=== PATIENT | female | born 1950 | race Two or more races ===

== ENCOUNTER 2019-02-22 02:55 | Inpatient (IN) | payer MEDICARE, OTHER ==
[~2019-02-22] VITALS: Ht 167.6 cm; Wt 84.4 kg
[2019-02-22 04:00] VITALS: BP 140/78
--- NOTE | 2019-02-22 04:00 | NUR ---
FIBERGLASS MACHINE OPERATORFELT CUTTER NOTES PATIENT IS A DIRECT ADMIT FROM [place] FOR COPD EXACERBATION. PATIENT CAME TO UNIT VIA GURNEY ACCOMPANIED BY 2 assembler dry cell and battery. PATIENT IS ALERT, ORIENTED X 4. NO SOB AT REST BUT SOB ON EXERTION. NO CHEST PAIN, ONLY DISCOMFORT, NON-RADIATING. TELE MONITOR IN PLACE- SINUS TACH 106. IV LINE ON RAC G#20 INTACT AND PATENT. BELONGINGS CHECKED BY LOR ONTIVEROS. ORIENTED TO CALL LIGHT- PLACED WITHIN EASY REACH. BED IN LOW, LOCKED POSITION. WILL CONTINUE TO MONITOR ACCORDINGLY
--- NOTE | 2019-02-22 04:05 | NUR ---
RN NOTES MRSA SWAB DONE
[2019-02-22] MEDS ORDERED: ONDANSETRON HCL/PF 4 MG/2 ML VIAL IVP PRN (04:30)
[2019-02-22] MEDS ORDERED: DEXTROSE 50%-WATER 50 ML DISP.SYRIN IV PRN (04:30)
[2019-02-22] MEDS ORDERED: Z GUARD REMEDY 2 OZ OINT TP PRN (04:30)
[2019-02-22] MEDS ORDERED: MAGNESIUM HYDROXIDE 30 ML UDC PO PRN (04:30)
[2019-02-22] MEDS ORDERED: MAG HYDROX/AL HYDROX/SIMETH 30 ML UDC PO PRN (04:30)
[2019-02-22] MEDS ORDERED: ENOXAPARIN SODIUM 40 MG/0.4 ML DISP.SYRIN SQ SCH (04:30)
[2019-02-22] MEDS ORDERED: IPRATROPIUM BROMIDE 14 GM INHALER (or 12.9 GM) IH SCH (04:30)
[2019-02-22] MEDS ORDERED: ALBU18HF2 INH (04:59)
[2019-02-22] MEDS ORDERED: METF-442 PO (04:59)
[2019-02-22] MEDS ORDERED: CARV6.252 PO (04:59)
[2019-02-22] MEDS ORDERED: ASPI-1169 PO (04:59)
[2019-02-22] MEDS ORDERED: ACET-73 PO (04:59)
[2019-02-22] MEDS ORDERED: FLUT1DIS INH (04:59)
[2019-02-22] MEDS ORDERED: FURO20TA4 PO (04:59)
[2019-02-22] MEDS ORDERED: LISI2.5T2 PO (04:59)
[2019-02-22] MEDS ORDERED: DILT-32 PO (04:59)
[2019-02-22] MEDS: AZITHROMYCIN 250 MG TABLET PO SCH (05:32)
--- NOTE | 2019-02-22 05:36 | NUR ---
RN NOTES ATROVENT INHALATION NOT GIVEN THERE IS NO INHALER IN UNIT YET
[2019-02-22 06:20] LABS: BASOPHILS % (AUTO) 0.1 % (0.0-2.0); EOSINOPHILS % (AUTO) 0.1 % (0.0-6.0); HEMATOCRIT 31 % (33-45); HEMOGLOBIN 10.3 g/dL (11.5-14.8); LYMPHOCYTES # (AUTO) 0.5 /CMM (0.8-4.8); LYMPHOCYTES % (AUTO) 6.4 % (20.0-44.0); MEAN CORPUSCULAR HGB CONC 33 g/dl (31.0-36.0); MEAN CORPUSCULAR VOLUME 87 fL (82-100); MONOCYTES # (AUTO) 0.1 /CMM (0.1-1.30); MONOCYTES % (AUTO) 0.8 % (2.0-12.0); NEUTROPHILS # (AUTO) 6.7 /CMM (1.8-8.9); NEUTROPHILS % (AUTO) 92.6 % (43.0-81.0); PLATELET COUNT (AUTO) 247 /CMM (150-450); RED BLOOD CELL COUNT(AUTO) 3.55 MIL/uL (4.0-5.2); WHITE BLOOD COUNT (AUTO) 7.2 K/uL (4.3-11.0)
--- NOTE | 2019-02-22 06:30 | NUR ---
RN NOTES CALLED LAB RE INFLUENZA SWAB. RAPID INFLUENZA ANTIGEN A+B SWAB DONE. EXPLAINED TO PATIENT THAT URINE SAMPLE AND SPUTUM SAMPLE IS NEEDED. PATIENT VERBALIZED UNDERSTANDING. INFORMED ALSO RT RE INITIAL INCENTIVE SPIROMETRY
[2019-02-22 06:35] LABS: THYROID STIMULATING HORMONE 1.307 uIU/mL (0.358-3.74)
[2019-02-22 06:38] LABS: ALBUMIN 2.8 g/dL (3.4-5.0); BILIRUBIN,TOTAL 0.2 mg/dL (0.2-1.0); CALCIUM, SERUM 8.5 mg/dL (8.5-10.1); CREATININE 1.5 mg/dL (0.6-1.3); MAGNESIUM 1.7 mg/dL (1.8-2.4); PHOSPHORUS 3.7 mg/dL (2.5-4.9); TOTAL PROTEIN, SERUM 7.1 g/dL (6.4-8.2)
--- NOTE | 2019-02-22 06:49 | NUR ---
TON CONTAINER FILLER CLOSING NOTES PATIENT SLEEPING IN BED, EASY TO AROUSE. BREATHING EVEN AND UNLABORED. NOT IN ANY DISTRESS. NO COMPLAINTS AT THIS TIME. TELE MONITOR IN PLACE- SINUS TACH 113 WITH OCCASIONAL PVC's. SAFETY MEASURES IN PLACE. CALL LIGHT WITHIN REACH, BED IN LOW, LOCKED POSITION. WILL ENDORSE KEISHA TO ONCOMING RN
--- NOTE | 2019-02-22 07:00 | NUR ---
BUSINESS LIAISON MANAGER NOTE: RECEIVED PATIENT IN BED. AWAKE, ALERT AND ORIENTED X4. ON ROOM AIR AND TOLERATING WELL. NO SOB NOTED AND NOT IN DISTRESS. WITH IV SITE AT RIGHT AC G20 ON SALINE LOCK, SITE CLEAN DRY AND PATENT. NO PAIN REPORTED AT THIS TIME. ON CARDIAC MONITORING WITH SINUS TACHYCARDIA NOTED AT 115 BPM. HISTORY OF OCCASIONAL PVC PROVIDED BY PATIENT. CALL LIGHT IN REACH, SIDE RAILS UP, BED LOCKED, LOW AND AT SEMI-MARTINEZ'S POSITION. WILL CONTINUE TO MONITOR.
[2019-02-22] MEDS: ALBUTEROL FS 2.5 MG/0.5 ML VIAL.NEB NEB SCH ×4 (07:04→20:03)
[2019-02-22 08:00] VITALS: BP 148/84
[2019-02-22] MEDS ORDERED: POTASSIUM CHLORIDE 20 MEQ TAB.PRT.SR PO ONE (08:00)
[2019-02-22] MEDS ORDERED: Magnesium 1GM/D5W 100ML PREMIX 100 ML IV SCH (08:00)
[2019-02-22] MEDS: ACETAMINOPHEN 325 MG TABLET PO PRN ×2 (08:07→21:29)
[2019-02-22] MEDS: BLOOD SUGAR DIAGNOSTIC 1 EACH STRIP IN SCH ×4 (08:07→21:19)
[2019-02-22] MEDS: PANTOPRAZOLE 40 MG TABLET.DR PO SCH (08:08)
[2019-02-22] MEDS: IPRATROPIUM NEB FS 0.5 MG/2.5 ML AMPUL.NEB NEB SCH ×5 (08:08→23:30)
[2019-02-22] MEDS: INSULIN REGULAR, HUMAN 100 UNIT/ML 3 ML VIAL SQ PRN ×4 (08:10→21:28)
[2019-02-22] MEDS: methylPREDNISolone SOD SUCC 40 MG/ML VIAL IV SCH ×2 (08:56→17:42)
[2019-02-22] MEDS ORDERED: DILTIAZEM HCL CD 120 MG PO SCH (09:30)
[2019-02-22] MEDS: FLUTICASONE/VILANTEROL 1 EACH BLST.W.DEV IH SCH (10:06)
[2019-02-22] MEDS: LISINOPRIL (5MG) 5 MG TABLET PO SCH (10:07)
[2019-02-22] MEDS: ENOXAPARIN SODIUM 40 MG/0.4 ML DISP.SYRIN SQ SCH (10:08)
[2019-02-22] MEDS: ASPIRIN 81 MG TAB.CHEW PO SCH (10:08)
[2019-02-22] MEDS: CARVEDILOL 6.25 MG TABLET PO SCH ×2 (10:09→17:43)
[2019-02-22 12:00] VITALS: BP 152/85
[2019-02-22 12:11] VITALS: BP 152/85
[2019-02-22] MEDS: DILTIAZEM HCL 30 MG TABLET PO SCH ×2 (12:31→17:42)
[2019-02-22 16:00] VITALS: BP 141/60
[2019-02-22] MEDS: METFORMIN 500 MG TABLET PO SCH (17:42)
--- NOTE | 2019-02-22 19:00 | NUR ---
MS RN CLOSING NOTE PATIENT IN BED. AWAKE, ALERT AND ORIENTED X4. ON CONT. 02 VIA NC @ 3LPM AND TOLERATING WELL. NO SOB NOTED AND NOT IN DISTRESS. WITH IV SITE AT RIGHT AC G20 ON SALINE LOCK, SITE CLEAN DRY AND PATENT. NO PAIN REPORTED AT THIS TIME. ON CARDIAC MONITORING WITH SINUS RHYTHM. CALL LIGHT IN REACH, SIDE RAILS UP, BED LOCKED, LOW AND AT SEMI-MARTINEZ'S POSITION. ENDORSED TO ONCOMING SHIFT FOR KEISHA.
--- NOTE | 2019-02-22 19:06 | NUR ---
QUARRY PLANT CRUSHER OPERATOR OPENING NOTES RECEIVED PATIENT IN BED, AWAKE, A/OX4. ON TELE MONITOR SR WITH HR 88. ON OXYGEN 2L VIA NC, TOLERATING WELL, NO SOB OR RESPIRATORY DISTRESS NOTED. C/O PRESSURE LIKE NON RADIATING CHEST PAIN AND HEADACHE; WILL ADMINISTER PRN PAIN MED. IV SITE RIGHT AC G20. FLUSHING AND PATENT, SITE C/D/I. SAFETY MEASURES IN PLACE; CALL LIGHT WITHIN REACH, SIDE RAILS UP X2, BED LOCKED AND IN LOWEST POSITION. HOB ON SEMI-MARTINEZ'S POSITION. WILL CONTINUE TO MONITOR PT CLOSELY.
[2019-02-22 20:00] VITALS: BP 120/67
--- NOTE | 2019-02-22 22:15 | NUR ---
SR. DIRECTOR PRODUCT MANAGEMENT OPENING/ADMITTING NOTES RECEIVED REPORT FROM PAULO FONTANA FOR KEISHA AT 2200. RECEIVED PATIENT VIA [place] WITH ER NURSES AT BEDSIDE. PT AMBULATED FROM [place] TO BED WITH ASSISTANCE. PT AWAKE, A/OX4. ON TELE MONITOR SR WITH HR 70'S. ON ROOM AIR, TOLERATING WELL, NO SOB OR RESPIRATORY DISTRESS NOTED. SATURATING 95% AT THE MOMENT. NOT C/O ANY PAIN. IV SITE RIGHT AC G18, FLUSHING AND PATENT, SITE C/D/I, SALINE LOCKED. ORIENTED PT TO THE UNIT AND ROOM. SAFETY MEASURES IN PLACE; CALL LIGHT WITHIN REACH, SIDE RAILS UP X2, BED LOCKED AND IN LOWEST POSITION. HOB ON SEMI-MARTINEZ'S POSITION. HOSPITALIST MADE AWARE OF BP 147/103, NO NEW ORDERS NOTED. AWAITING FOR HOSPITALIST ADMITTING ORDERS. WILL CONTINUE TO MONITOR PT CLOSELY. Addendum: 02/22/19 at 2253 by ANNI ROSSI RN CLARIFICATION: THIS NOTE IS NOT FOR THIS PATIENT.
[2019-02-23] VITALS: BP 127/61
[2019-02-23] MEDS: IPRATROPIUM NEB FS 0.5 MG/2.5 ML AMPUL.NEB NEB SCH ×6 (03:47→23:56)
[2019-02-23 04:00] VITALS: BP 132/61
[2019-02-23] MEDS: AZITHROMYCIN 250 MG TABLET PO SCH (04:43)
[2019-02-23 04:51] LABS: APPEARANCE,URINE Clear (CLEAR); BILIRUBIN,URINE Negative (NEGATIVE); BLOOD, URINE Negative Ery/uL (NEGATIVE); COLOR,URINE Yellow (YELLOW); KETONES,URINE Negative (NEGATIVE); LEUKOCYTE ESTERASE ,URINE Negative (NEGATIVE); NITRITE, URINE Negative (NEGATIVE); PH,URINE 5.5 (5.0-8.0); PROTEIN,URINE >=300 mg/dl (NEGATIVE); UGLUCOSE Negative (NEGATIVE); UROBILINOGEN,URINE 0.2 EU/dL (0.2)
[2019-02-23 06:42] LABS: BASOPHILS % (AUTO) 0.1 % (0.0-2.0); HEMATOCRIT 32 % (33-45); HEMOGLOBIN 10.3 g/dL (11.5-14.8); LYMPHOCYTES # (AUTO) 1.3 /CMM (0.8-4.8); LYMPHOCYTES % (AUTO) 8.4 % (20.0-44.0); MEAN CORPUSCULAR HGB CONC 33 g/dl (31.0-36.0); MEAN CORPUSCULAR VOLUME 88 fL (82-100); MONOCYTES # (AUTO) 0.4 /CMM (0.1-1.30); MONOCYTES % (AUTO) 2.6 % (2.0-12.0); NEUTROPHILS # (AUTO) 13.6 /CMM (1.8-8.9); NEUTROPHILS % (AUTO) 88.9 % (43.0-81.0); PLATELET COUNT (AUTO) 283 /CMM (150-450); RED BLOOD CELL COUNT(AUTO) 3.56 MIL/uL (4.0-5.2); WHITE BLOOD COUNT (AUTO) 15.3 K/uL (4.3-11.0)
[2019-02-23 07:13] LABS: CALCIUM, SERUM 8.7 mg/dL (8.5-10.1); CREATININE 1.5 mg/dL (0.6-1.3); PHOSPHORUS 4.3 mg/dL (2.5-4.9); POTASSIUM 4.5 mmol/L (3.5-5.1)
--- NOTE | 2019-02-23 07:24 | NUR ---
FACILITY SERVICE ASSOCIATE NOTES PAGED RT TWICE D/T PATIENT STATED "I CANNOT BREATHE" PATIENT NOTED TO HAVE SOB AND ANXIOUS. PT ON 2L VIA NASAL CANNULA. SATURATING 96% AT THE MOMENT. WILL CONT TO MONITOR PT CLOSELY.
[2019-02-23] MEDS: ALBUTEROL FS 2.5 MG/0.5 ML VIAL.NEB NEB SCH ×4 (07:28→20:00)
--- NOTE | 2019-02-23 07:30 | NUR ---
GEAR INSPECTOR CLOSING NOTES PATIENT IN BED, AWAKE, A/OX4. CURRENTLY GETTING BREATHING TX. SATURATING 98% AT THE MOMENT. ON TELE MONITOR SR WITH HR 90'S. IV SITE RIGHT AC G20, FLUSHING AND PATENT, SITE C/D/I. PT REFUSED BED BATH. ALL NEEDS ANTICIPATED AND MET. ALL MD ORDERS ATTENDED. SAFETY MEASURES MAINTAINED; CALL LIGHT WITHIN REACH, SIDE RAILS UP X2, BED LOCKED AND IN LOWEST POSITION. HOB ON SEMI-MARTINEZ'S POSITION. ENDORSED TO AM RN FOR KEISHA.
[2019-02-23 08:00] VITALS: BP 153/79
[2019-02-23] MEDS: ASPIRIN 81 MG TAB.CHEW PO SCH (08:04)
[2019-02-23] MEDS: BLOOD SUGAR DIAGNOSTIC 1 EACH STRIP IN SCH ×4 (08:04→21:30)
[2019-02-23] MEDS: CARVEDILOL 6.25 MG TABLET PO SCH ×2 (08:06→16:25)
[2019-02-23] MEDS: DILTIAZEM HCL 30 MG TABLET PO SCH ×2 (08:06→16:24)
[2019-02-23] MEDS: LISINOPRIL (5MG) 5 MG TABLET PO SCH (08:06)
[2019-02-23] MEDS: PANTOPRAZOLE 40 MG TABLET.DR PO SCH (08:07)
[2019-02-23] MEDS: methylPREDNISolone SOD SUCC 40 MG/ML VIAL IV SCH ×2 (08:07→16:24)
[2019-02-23] MEDS: METFORMIN 500 MG TABLET PO SCH ×2 (08:07→16:25)
[2019-02-23] MEDS: ENOXAPARIN SODIUM 40 MG/0.4 ML DISP.SYRIN SQ SCH (08:08)
[2019-02-23] MEDS: INSULIN REGULAR, HUMAN 100 UNIT/ML 3 ML VIAL SQ PRN ×3 (08:09→21:32)
[2019-02-23] MEDS: FLUTICASONE/VILANTEROL 1 EACH BLST.W.DEV IH SCH (08:10)
[2019-02-23] MEDS: ACETAMINOPHEN 325 MG TABLET PO PRN (11:33)
--- NOTE | 2019-02-23 12:30 | NUR ---
NURSES NOTE PATIENT REPORT RECEIVED FOR CONTINUATION OF CARE. PATIENT RECEIVED IN BED SUPINE IN ALERT AND ORIENTED CONDITION. PATIENT DENIES PAIN AND IS COMPLAINING OF ANXIETY. WILL MEDICATE PER EMAR. PATIENT ON NASAL CANNULA I LITER AT THIS TIME. PATIENT ALERTX3 AT THIS TIME. WILL CONTINUE TO MONITOR. ALARMS ON, CALL LIGHT WITHIN REACH.
[2019-02-23] MEDS: LORAZEPAM INJ 2 MG/ML VIAL IV PRN ×2 (12:37→21:41)
[2019-02-23 16:00] VITALS: BP 147/72
--- NOTE | 2019-02-23 16:10 | NUR ---
NURSES NOTE ATTEMPTED TO FOLLOW UP WITH HAILEE RUSSELL FROM INVESTIGATION DIVISION SERGEANT. CALLED MEDICAL RECORDS, NO ANSWER RECEIVED. WILL ATTEMPT A SECOND CALL.
--- NOTE | 2019-02-23 19:15 | NUR ---
MS RN NOTES RECEIVED ON BED A/O X4,SPEAK NORTH KOREAN,APPEARS ANXIOUS AT THE MOMENT AND SHE JUST GOT HER BREATHING TREATMENT.ADVISED THAT SHE WILL BE GIVEN MEDICATION FOR ANXIETY.ENCOURAGED TO DO DEEP BREATHING EXERCISES.O2 IN USED AT 1LITER TO KEEP O2 SAT ABOVE 90%.CALL LIGHT IN REACH,NEEDS ANTICIPATED.
--- NOTE | 2019-02-23 19:25 | NUR ---
END OF SHIFT REPORT REPORT GIVEN TO RN CHARLIE. PATIENT ENDORSED IN STABLE CONDITION. ALL QUESTIONS ANSWERED.
[2019-02-23 20:00] VITALS: BP 134/63
--- NOTE | 2019-02-23 21:30 | NUR ---
MS RN NOTES ACCU-CHECK BLOOD SUGAR CHECK 155MG/DL,COVERED WITH HUMULIN R 2 UNITS PER SLIDING SCALE.
--- NOTE | 2019-02-23 21:41 | NUR ---
MS RN NOTES FEELING ANXIOUS,MEDICATED WITH ATIVAN 0.5MG IV ORDERED FOR ANXIETY
--- NOTE | 2019-02-24 01:00 | NUR ---
MS RN NOTES SLEEPING,KEPT WARM AND COMFORTABLE.
[2019-02-24 04:00] VITALS: BP 147/72
[2019-02-24] MEDS: IPRATROPIUM NEB FS 0.5 MG/2.5 ML AMPUL.NEB NEB SCH ×6 (04:09→22:40)
[2019-02-24] MEDS: AZITHROMYCIN 250 MG TABLET PO SCH (04:30)
[2019-02-24] MEDS: LORAZEPAM INJ 2 MG/ML VIAL IV PRN ×3 (04:38→22:17)
--- NOTE | 2019-02-24 04:38 | NUR ---
IKER RN NOTES FEELING ANXIOUS POST BREATHING TREATMENT,MEDICATED WITH ATIVAN 0.5MG IV ORDERED.
--- NOTE | 2019-02-24 06:13 | NUR ---
MS RN NOTES SLEPT WITH INTERVALS.BREATHING TREATMENT TOLERATED WELL.CALM THIS TIME,ATIVAN EFFECTIVE.NO EPISODE OF SOB NOTED.NO S/S OF HYPO/HYPERGLYCEMIA NOTED.IN NO ACUTE DISTRESS.
[2019-02-24 06:42] LABS: BASOPHILS % (AUTO) 0.1 % (0.0-2.0); HEMATOCRIT 32 % (33-45); HEMOGLOBIN 10.4 g/dL (11.5-14.8); LYMPHOCYTES # (AUTO) 1.2 /CMM (0.8-4.8); LYMPHOCYTES % (AUTO) 7.9 % (20.0-44.0); MEAN CORPUSCULAR HGB CONC 33 g/dl (31.0-36.0); MEAN CORPUSCULAR VOLUME 88 fL (82-100); MONOCYTES # (AUTO) 0.3 /CMM (0.1-1.30); NEUTROPHILS # (AUTO) 13.2 /CMM (1.8-8.9); PLATELET COUNT (AUTO) 292 /CMM (150-450); RED BLOOD CELL COUNT(AUTO) 3.63 MIL/uL (4.0-5.2); WHITE BLOOD COUNT (AUTO) 14.7 K/uL (4.3-11.0)
[2019-02-24 07:28] LABS: CALCIUM, SERUM 8.6 mg/dL (8.5-10.1); CREATININE 1.4 mg/dL (0.6-1.3); POTASSIUM 4.1 mmol/L (3.5-5.1)
[2019-02-24] MEDS: BLOOD SUGAR DIAGNOSTIC 1 EACH STRIP IN SCH ×4 (07:30→22:21)
[2019-02-24] MEDS: ALBUTEROL FS 2.5 MG/0.5 ML VIAL.NEB NEB SCH ×4 (07:44→20:01)
[2019-02-24 08:00] VITALS: BP 149/89
[2019-02-24] MEDS: DILTIAZEM HCL 30 MG TABLET PO SCH ×2 (08:03→15:58)
[2019-02-24] MEDS: CARVEDILOL 6.25 MG TABLET PO SCH ×2 (08:03→15:59)
[2019-02-24] MEDS: ASPIRIN 81 MG TAB.CHEW PO SCH (08:04)
[2019-02-24] MEDS: PANTOPRAZOLE 40 MG TABLET.DR PO SCH (08:04)
[2019-02-24] MEDS: METFORMIN 500 MG TABLET PO SCH ×2 (08:04→15:59)
[2019-02-24] MEDS: FLUTICASONE/VILANTEROL 1 EACH BLST.W.DEV IH SCH (08:05)
[2019-02-24] MEDS: methylPREDNISolone SOD SUCC 40 MG/ML VIAL IV SCH ×2 (08:05→15:57)
[2019-02-24] MEDS: ENOXAPARIN SODIUM 40 MG/0.4 ML DISP.SYRIN SQ SCH (08:07)
[2019-02-24] MEDS: LISINOPRIL (5MG) 5 MG TABLET PO SCH (08:38)
[2019-02-24 10:08] VITALS: BP 148/89
[2019-02-24] MEDS: INSULIN REGULAR, HUMAN 100 UNIT/ML 3 ML VIAL SQ PRN ×3 (11:33→22:13)
[2019-02-24 12:00] VITALS: BP 156/70
[2019-02-24 16:00] VITALS: BP 172/79
--- NOTE | 2019-02-24 19:17 | NUR ---
MS RN OPENING NOTES: RECEIVED PATIENT, RESTING IN BED, A/O X4. NO SOB. NOT IN RESPIRATORY DISTRESS. WITH O2 AT 3L/MIN. PATIENT IS COMFORTABLE. CALL LIGHT WITHIN REACH. BED IN LOWEST AND LOCKED POSITION.
[2019-02-24 20:00] VITALS: BP 134/77
[2019-02-24] MEDS: ACETAMINOPHEN 325 MG TABLET PO PRN (23:04)
[2019-02-25] MEDS: IPRATROPIUM NEB FS 0.5 MG/2.5 ML AMPUL.NEB NEB SCH ×3 (03:11→12:11)
[2019-02-25] MEDS: AZITHROMYCIN 250 MG TABLET PO SCH (05:08)
[2019-02-25 05:14] VITALS: BP 139/69
--- NOTE | 2019-02-25 05:40 | NUR ---
MS RN CLOSING NOTES: PATIENT IS RESTING IN BED, A/O X4. NO ACUTE EVENTS OVERNIGHT. NO SOB NOTED. MEDICATED WITH TYLENOL PO FOR PAIN LAST NIGHT, EFFECTIVE. AMBULATORY. RESTED THROUGHOUT THE NIGHT. CALL LIGHT WITHIN REACH. BED ALARM ON. BED IN LOWEST AND LOCKED POSITION. VITALS STABLE. AFEBRILE.
[2019-02-25 06:43] LABS: BASOPHILS % (AUTO) 0.1 % (0.0-2.0); HEMATOCRIT 34 % (33-45); LYMPHOCYTES # (AUTO) 1.4 /CMM (0.8-4.8); LYMPHOCYTES % (AUTO) 11.4 % (20.0-44.0); MEAN CORPUSCULAR HGB CONC 33 g/dl (31.0-36.0); MEAN CORPUSCULAR VOLUME 88 fL (82-100); MONOCYTES # (AUTO) 0.3 /CMM (0.1-1.30); MONOCYTES % (AUTO) 2.8 % (2.0-12.0); NEUTROPHILS # (AUTO) 10.4 /CMM (1.8-8.9); NEUTROPHILS % (AUTO) 85.7 % (43.0-81.0); PLATELET COUNT (AUTO) 304 /CMM (150-450); RED BLOOD CELL COUNT(AUTO) 3.86 MIL/uL (4.0-5.2); WHITE BLOOD COUNT (AUTO) 12.1 K/uL (4.3-11.0)
[2019-02-25] MEDS: LORAZEPAM INJ 2 MG/ML VIAL IV PRN (06:53)
--- NOTE | 2019-02-25 07:00 | NUR ---
RN AM SHIFT NOTE PATIENT ALERT AND ORIENTED X4. IV PATENT AND INTACT. CONTINENT, ABLE TO AMBULATE TO THE BATHROOM . SIDE RAILS UP BED IN LOW POSITION. ALL NEEDS MET AT THIS TIME. NO COMPLAINTS OF PAIN. CONTINUE TO MONTIOR.
[2019-02-25 07:09] LABS: CALCIUM, SERUM 8.4 mg/dL (8.5-10.1); CREATININE 1.5 mg/dL (0.6-1.3); POTASSIUM 4.4 mmol/L (3.5-5.1)
[2019-02-25] MEDS: BLOOD SUGAR DIAGNOSTIC 1 EACH STRIP IN SCH (07:30)
[2019-02-25 08:00] VITALS: BP 145/83
[2019-02-25] MEDS: ALBUTEROL FS 2.5 MG/0.5 ML VIAL.NEB NEB SCH ×2 (08:06→12:11)
[2019-02-25] MEDS: PANTOPRAZOLE 40 MG TABLET.DR PO SCH (08:29)
[2019-02-25] MEDS: DILTIAZEM HCL 30 MG TABLET PO SCH (08:29)
[2019-02-25] MEDS: methylPREDNISolone SOD SUCC 40 MG/ML VIAL IV SCH (08:29)
[2019-02-25] MEDS: ASPIRIN 81 MG TAB.CHEW PO SCH (08:29)
[2019-02-25 08:30] VITALS: BP 145/83
[2019-02-25] MEDS: LISINOPRIL (5MG) 5 MG TABLET PO SCH (08:30)
[2019-02-25] MEDS: CARVEDILOL 6.25 MG TABLET PO SCH (08:30)
[2019-02-25] MEDS: METFORMIN 500 MG TABLET PO SCH (08:31)
[2019-02-25] MEDS: INSULIN REGULAR, HUMAN 100 UNIT/ML 3 ML VIAL SQ PRN (08:41)
[2019-02-25] MEDS: FLUTICASONE/VILANTEROL 1 EACH BLST.W.DEV IH SCH (08:41)
[2019-02-25] MEDS: ENOXAPARIN SODIUM 40 MG/0.4 ML DISP.SYRIN SQ SCH (08:42)
[2019-02-25] MEDS ORDERED: LORA-259 PO (09:50)
[2019-02-25] MEDS ORDERED: FLUT1DIS INH (09:50)
[2019-02-25] MEDS ORDERED: AZIT500T2 PO (09:50)
[2019-02-25] MEDS ORDERED: ALBU18HF2 INH (09:50)
[2019-02-25] MEDS ORDERED: METH4TAB17 PO (09:50)
--- NOTE | 2019-02-25 10:46 | NUR ---
ROTARY FURNACE OPERATOR NOTE PATIENT AWAKE ALERT AND NO DISTRESS AT THIS TIME. MD CAME BY NAILA TO DISCHARGE PATIENT TO HOME WITH HOME HEALTH. FLU VACCINE REFUSED, CONSULTAITON ON DISEASE CONDITION, ALL DOCUMENTS INCLUDED IN DISCHARE MATERIAL. RN CALL CASE MANAGMENT TO CONFIRM DISCHARGE. VITALS WNL.
--- NOTE | 2019-02-25 11:30 | NUR ---
DIRECTOR OF FIELD COORDINATION D/C NOTE PATIENT AND FAMILY REFUSED PICTURES OF WOUNDS ON EXIT. NO PICTURES TAKEN.
--- NOTE | 2019-02-25 12:09 | NUR ---
RN NOTE OXYGEN TANK EMPTY ON ARRIVAL, PATIENT FAMILY MEMBER NEEDED TO GO HOME AND GET TANK WHIH THEY DID FOR DISCHRAGE. PATIENT FAMILY HERE TO ASSIT IN [place] FOR DISCHARGE.. RN WALKED OUT TO SEE PATIENT IN [place] SAFELY.
== END 2019-02-25 11:40 | disposition home health service (06) | DRG 190 ==
LOC: TELE-TD 03:49 → TELE1 04:03 → MEDSG1 02-23 12:00
PROVIDERS: ADMIT Nurse Practitioner Acute Care; ATTEND Nurse Practitioner Acute Care
DX: J44.1 Chronic obstructive pulmonary disease with (acute) exacerbation (principal); N17.0 Acute kidney failure with tubular necrosis; E44.0 Moderate protein-calorie malnutrition; I13.0 Hypertensive heart and chronic kidney disease with heart failure and stage 1 through stage 4 chronic kidney disease, or unspecified chronic kidney disease; I50.32 Chronic diastolic (congestive) heart failure; R07.9 Chest pain, unspecified; E03.9 Hypothyroidism, unspecified; Z87.01 Personal history of pneumonia (recurrent); I25.10 Atherosclerotic heart disease of native coronary artery without angina pectoris; E88.09 Other disorders of plasma-protein metabolism, not elsewhere classified; Z68.30 Body mass index [BMI] 30.0-30.9, adult; D63.8 Anemia in other chronic diseases classified elsewhere; E66.9 Obesity, unspecified; Z85.43 Personal history of malignant neoplasm of ovary; G47.33 Obstructive sleep apnea (adult) (pediatric); N18.9 Chronic kidney disease, unspecified; E11.22 Type 2 diabetes mellitus with diabetic chronic kidney disease; Z79.84 Long term (current) use of oral hypoglycemic drugs
CPT/HCPCS: 36415; 71045-TC; 80048-TC; 80053-TC; 80061-TC; 81000-TC; 82962-TC; 83735-TC; 84100-TC; 84443-TC; 84484-TC; 85025-TC; 87081-TC; 93307-TC; 94799-TC; 97116-TC; 97530-TC; G0378; J1650; J1815; J2060; J2920; J3475; J7050

== ENCOUNTER 2019-07-23 15:57 | Inpatient (IN) | payer MEDICARE, OTHER ==
[~2019-07-23] VITALS: Ht 167.6 cm; Wt 83.2 kg
[2019-07-23 08:30] VITALS: BP 171/98
[~2019-07-23 15:57] MED LIST: ACET-73 PO; ALBU18HF2 INH; ASPI-1169 PO; AZIT500T2 PO; CARV6.252 PO; DILT-32 PO; FLUT1DIS INH; FURO20TA4 PO; LISI2.5T2 PO; LORA-259 PO; METF-442 PO; METH4TAB17 PO
[2019-07-23 20:10] VITALS: BP 171/98
--- NOTE | 2019-07-23 20:10 | NUR ---
MS DIGITAL ASSISTANT NOTES PATIENT ADMITTED DIRECTLY FROM [facility] FOR CHF EXACERBATION AND LEFT LEG CELLULITIS. A/OX4. ON 2L NC. PATIENT C/O OF SOB AND LEFT LEG PAIN RATED 8/10. IV PRESENT ON RIGHT AC, SIZE 20, INTACT & PATENT, HEP LOCKED. UPON SKIN ASSESSMENT, CELLULITIS PRESENT ON LEFT CALF, WARM TO TOUCH. SKIN RASH/ECZEMA PRESENT ON LEFT HAND. PICTURES TAKEN AND PLACED IN CHART. HOME MEDS REVIEWED WITH PATIENT AND CHARTED UNDER MED RECON. MRSA SWAB COMPLETED. PATIENT RELATIONS MANAGER WILLIAM BRANNON, NOTIFIED OF ADMISSION; AWAITING ORDERS. SAFETY MEASURES IN PLACE AND PATIENT'S NEEDS MET. BED LOCKED, ALARM ON, SIDE RAILS X2, CALL LIGHT WITHIN REACH. WILL CONTINUE TO MONITOR.
[2019-07-23 20:20] VITALS: BP 160/88
[2019-07-23] MEDS ORDERED: ALPR0.5T PO (21:09)
[2019-07-23] MEDS ORDERED: LIDO30CR TP (21:09)
[2019-07-23] MEDS ORDERED: MUPI22OI2 TP (21:09)
[2019-07-23] MEDS ORDERED: ESCI5TAB PO (21:09)
[2019-07-23] MEDS ORDERED: CALC60OI4 TP (21:09)
[2019-07-23] MEDS ORDERED: GABA-532 PO (21:09)
[2019-07-23] MEDS ORDERED: LORAZEPAM 0.5 MG TABLET PO ONE (22:00)
[2019-07-23] MEDS ORDERED: METOPROLOL SUCCINATE 50 MG TAB.SR.24H PO SCH (22:00)
[2019-07-23] MEDS: MORPHINE SULFATE INJ 2 MG/ML DISP.SYRIN IM PRN (22:00)
[2019-07-23 22:01] VITALS: BP 160/88
--- NOTE | 2019-07-23 22:01 | NUR ---
HYDRAULIC PRESS TENDER NOTES PATIENT C/O OF GENERALIZED PAIN RATED 9/10. ADMINISTERED 2MG MORPHINE PRN Q3H. TELE MONITOR READING SINUS TACH. VITAL SIGNS - BP: 160/88 HR: 103 RR: 22 SPO2: 98 ON 3L NC. CALL LIGHT WITHIN REACH. WILL CONTINUE TO MONITOR.
[2019-07-23] MEDS ORDERED: INSULIN REGULAR, HUMAN 100 UNIT/ML 3 ML VIAL SQ PRN (22:30)
[2019-07-23] MEDS ORDERED: ACETAMINOPHEN 325 MG TABLET PO PRN (22:30)
[2019-07-23] MEDS ORDERED: hydrALAZINE HCL 25 MG TABLET PO PRN (22:30)
[2019-07-23] MEDS ORDERED: DEXTROSE 50%-WATER 50 ML DISP.SYRIN IV PRN (22:30)
[2019-07-23] MEDS ORDERED: TEMAZEPAM 7.5 MG CAPSULE PO PRN (23:00)
[2019-07-23] MEDS ORDERED: PIPERACILLIN /TAZOBACTAM 2.25 G VIAL IV ONE (23:06)
[2019-07-23] MEDS ORDERED: VANCOMYCIN 1 GM VIAL ONE ×2 (23:07→23:09)
[2019-07-23] MEDS: VANCOMYCIN 1.5 GM in IV D5W 500ml IV ONE (23:19)
[2019-07-23] MEDS: ZOSYN IVPB 2.25 G in IV D5W 50ml IV SCH (23:29)
[2019-07-24] VITALS (9 sets, daily range): BP systolic 110–160; BP diastolic 69–98
[2019-07-24] MEDS: HYDROCODONE/APAP 5/325MG 1 EACH TABLET PO PRN ×4 (00:11→21:27)
--- NOTE | 2019-07-24 00:11 | NUR ---
GRANITE WORKER NOTES PATIENT C/O OF RIGHT SHOULDER PAIN RATED 10/10. PER PATIENT'S REQUEST, ADMINISTERED PRN 5/325 MG NORCO PO. VITAL SIGNS - BP: 160/84 HR: 105. CALL LIGHT WITHIN REACH. WILL CONTINUE TO MONITOR.
[2019-07-24] MEDS: VANCOMYCIN 1.5 GM in IV D5W 500ml IV ONE (00:16)
[2019-07-24] MEDS: MORPHINE SULFATE INJ 2 MG/ML DISP.SYRIN IM PRN ×2 (01:26→04:56)
--- NOTE | 2019-07-24 01:26 | NUR ---
MANUFACTURING ENGINEER PAINT NOTES PATIENT C/O OF LEFT LEG PAIN RATED 7/10. PER PATIENT'S REQUEST, ADMINISTERED 2MG MORPHINE PRN Q3H IV. VITAL SIGNS - BP: 156/88 HR: 105. CALL LIGHT WITHIN REACH. WILL CONTINUE TO MONITOR.
[2019-07-24] MEDS: ALBUTEROL HALF STRENGTH 1.25 MG/3 ML VIAL.NEB NEB SCH ×6 (03:08→23:30)
[2019-07-24] MEDS ORDERED: PIPERACILLIN /TAZOBACTAM 2.25 G VIAL IV ONE (04:35)
[2019-07-24] MEDS: ZOSYN IVPB 2.25 G in IV D5W 50ml IV SCH (04:42)
--- NOTE | 2019-07-24 04:56 | NUR ---
EXECUTIVE DIRECTOR OF MARKETING NOTE PATIENT C/O OF LEFT LEG PAIN RATED 9/10. PER PATIENT'S REQUEST ADMINISTERED PRN 2MG MORPHINE. VITAL SIGNS - BP: 145/91 HR: 98. CALL LIGHT WITHIN REACH. WILL CONTINUE TO MONITOR.
[2019-07-24 06:23] LABS: BASOPHILS # (AUTO) 0.1 /CMM (0.0-0.2); BASOPHILS % (AUTO) 0.6 % (0.0-2.0); EOSINOPHILS % (AUTO) 4.7 % (0.0-6.0); HEMATOCRIT 35 % (33-45); HEMOGLOBIN 11.7 g/dL (11.5-14.8); LYMPHOCYTES % (AUTO) 13.3 % (20.0-44.0); MEAN CORPUSCULAR HGB CONC 34 g/dl (31.0-36.0); MEAN CORPUSCULAR VOLUME 87 fL (82-100); MONOCYTES # (AUTO) 0.7 /CMM (0.1-1.30); MONOCYTES % (AUTO) 4.6 % (2.0-12.0); NEUTROPHILS # (AUTO) 11.8 /CMM (1.8-8.9); NEUTROPHILS % (AUTO) 76.8 % (43.0-81.0); PLATELET COUNT (AUTO) 219 /CMM (150-450); RED BLOOD CELL COUNT(AUTO) 4.05 MIL/uL (4.0-5.2); WHITE BLOOD COUNT (AUTO) 15.3 K/uL (4.3-11.0)
[2019-07-24 06:43] LABS: ALBUMIN 3.3 g/dL (3.4-5.0); BILIRUBIN,TOTAL 0.4 mg/dL (0.2-1.0); CALCIUM, SERUM 9.1 mg/dL (8.5-10.1); CREATININE 1.4 mg/dL (0.6-1.3); MAGNESIUM 1.9 mg/dL (1.8-2.4); PHOSPHORUS 4.3 mg/dL (2.5-4.9); POTASSIUM 3.9 mmol/L (3.5-5.1); TOTAL PROTEIN, SERUM 7.6 g/dL (6.4-8.2)
[2019-07-24 06:45] LABS: THYROID STIMULATING HORMONE 3.957 uIU/mL (0.358-3.74)
[2019-07-24] MEDS: BLOOD SUGAR DIAGNOSTIC 1 EACH STRIP IN SCH ×2 (07:08→13:25)
[2019-07-24] MEDS ORDERED: FEE PK DOSING 1 MIN EA MC ONE (07:26)
--- NOTE | 2019-07-24 07:43 | NUR ---
SHAREPOINT ADMINISTRATOR CLOSING NOTES PATIENT RESTING IN BED. A/OX4. ON 2L NC. NO S/S OF SOB OR C/O PAIN AT THIS TIME. TELE MONITOR READING SINUS TACH, HEART RATE 105. IV ON RIGHT AC, SIZE 20, INTACT & PATENT, HEP LOCKED. SAFETY MEASURES IN PLACE AND PATIENT'S NEEDS MET. BED LOCKED, ALARM ON, SIDE RAILS X2, CALL LIGHT WITHIN REACH. WILL ENDORSE TO DAY SHIFT NURSE PLAN OF CARE.
--- NOTE | 2019-07-24 08:00 | NUR ---
rn notes Received patient in the room crying was complaining of generalized pain, no acute respiratory distress o2-2lnc, v/s taken stable. Edema and redness on left leg. patient continent, using bathroom. iv access on right ac area intact. call light within to reach, continued monitoring.
[2019-07-24] MEDS: DOCUSATE SODIUM 100 MG CAPSULE PO SCH ×2 (08:36→17:13)
[2019-07-24] MEDS: ACIDOPHILUS/BULGARICUS 1 EACH TAB.CHEW PO SCH ×2 (08:36→17:13)
[2019-07-24] MEDS: ASCORBIC ACID 500 MG TABLET PO SCH (08:36)
[2019-07-24] MEDS: ESCITALOPRAM OXALATE (10 MG) 10 MG TABLET PO SCH (08:36)
[2019-07-24] MEDS: METFORMIN 500 MG TABLET PO SCH ×3 (08:37→17:00)
[2019-07-24] MEDS: ZINC SULFATE 220 MG CAPSULE PO SCH (08:37)
[2019-07-24] MEDS: ASPIRIN 81 MG TAB.CHEW PO SCH (08:38)
--- NOTE | 2019-07-24 08:38 | NUR ---
RN NOTES ADMINISTERED NARCO 5/325 MG PO PRN FOR GENERALIZED PAIN 10/29 PER PATIENT REQUEST, V/S TAKEN BP -135/98, P-100. ALSO ADMINISTERED SCHEDULED MEDICATION. US TECH NEXT TO THE BED FOR BLE DOPPLER STUDY.
[2019-07-24] MEDS: PANTOPRAZOLE 40 MG TABLET.DR PO SCH (08:39)
[2019-07-24] MEDS: CARVEDILOL 6.25 MG TABLET PO SCH ×2 (08:39→17:13)
[2019-07-24] MEDS: GABAPENTIN 100 MG CAPSULE PO SCH ×2 (08:39→17:12)
[2019-07-24] MEDS: PIPERACILLIN /TAZOBACTAM 2.25 G in IV D5W 50 ML IV SCH ×3 (08:53→18:54)
[2019-07-24] MEDS: FLUTICASONE/VILANTEROL 1 EACH BLST.W.DEV IH SCH (08:53)
[2019-07-24] MEDS: ONDANSETRON HCL/PF 4 MG/2 ML VIAL IVP PRN (08:55)
--- NOTE | 2019-07-24 08:55 | NUR ---
RN NOTES ADMINISTERED ZOFRAN 4 MG/ML IV PUSH FOR NAUSEA/VOMITING.
[2019-07-24] MEDS: FUROSEMIDE 40 MG/4 ML VIAL IV SCH ×2 (09:00→13:25)
[2019-07-24] MEDS ORDERED: DILTIAZEM HCL 30 MG TABLET PO SCH (09:00)
[2019-07-24] MEDS ORDERED: FUROSEMIDE 20 MG/2 ML VIAL IV SCH (09:00)
[2019-07-24] MEDS ORDERED: LISINOPRIL (5MG) 5 MG TABLET PO SCH ×2 (09:00)
[2019-07-24] MEDS ORDERED: FERROUS SULFATE (325 MG) 325 MG/TAB TABLET PO SCH (09:00)
--- NOTE | 2019-07-24 09:54 | NUR ---
WOUND CARE CONSULT: PT PRESENTS WITH REDNESS TO LOWER LEGS AND PEELING SKIN TO LEFT HAND, PRESENT ON ADMISSION. PT BEING TREATED FOR CELLULITIS. PT AMBULATES TO BATHROOM WITH ASSISTANCE. WILL SEE PRN. RECOMMENDATIONS MADE FOR SKIN PROTECTION. DISCUSSED WITH NURSING STAFF. WILL SEE PRN. MD IN AGREEMENT WITH PLAN OF CARE.
[2019-07-24] MEDS: ALPRAZOLAM 0.5 MG TABLET PO PRN (09:59)
[2019-07-24] MEDS ORDERED: FUROSEMIDE 20 MG/2 ML VIAL IV ONE (10:00)
[2019-07-24] MEDS: ENOXAPARIN SODIUM 40 MG/0.4 ML DISP.SYRIN SQ SCH (10:06)
[2019-07-24] MEDS: methylPREDNISolone SOD SUCC 40 MG/ML VIAL IV SCH ×2 (13:27→21:20)
[2019-07-24] MEDS: SOD FERRIC GLUC 125 MG in IV NS 0.9% 100 ML IV SCH (15:38)
--- NOTE | 2019-07-24 15:42 | NUR ---
rn notes administered narco 5/325 mg po prn froy generalized pain, v/s taken bp 132/69, p-83. infusing Ferrlecit 100 ml/hr on right ac area intact.
[2019-07-24] MEDS: VANCOMYCIN 1 GM in IV D5W 250 ML IV SCH (17:10)
--- NOTE | 2019-07-24 18:30 | NUR ---
rn notes BS- 127 MG/DL NO COVERAGE GIVEN, ADMINISTERED SCHEDULED MEDICATION, TOLERATED DINNER 50%. INFUSING VANCOMYCIN 250 ML/HR ON RIGHT AC AREA INTACT, CALL LIGHT WITHIN TO REACH. ENDORSED ONCOMING NURSE FOLLOW PLAN OF CARE.
--- NOTE | 2019-07-24 19:34 | NUR ---
MSRN FULLY AWAKE, NO SOB, PAINFREE OF THIS TIME. APPEARS COMFOTABLE, DENIES ANY DISCOMFORTS. SAFETY PRECAUTIONS EMPHASIZED, PLAN OF CARE AND MEDICATION REGIMEN DISCUSSED WITH PATIENT,APPEARS TO UNDERSTAND. REMINDED TO CALL STAFF FOR ANY ASSISTANCE OR DISCOMFORTS, CALL LIGHT WITHIN REACH.
[2019-07-25] MEDS: PIPERACILLIN /TAZOBACTAM 2.25 G in IV D5W 50 ML IV SCH ×4 (00:10→17:10)
[2019-07-25] MEDS: MORPHINE SULFATE INJ 2 MG/ML DISP.SYRIN IM PRN ×2 (01:23→06:40)
--- NOTE | 2019-07-25 01:57 | NUR ---
MSRN VERBALIZES GEN PAIN HUBERT LEFT LEG, MORPHINE 2MG IVP ADMINISTERED .BEDREST FOR NOW.
[2019-07-25] MEDS: methylPREDNISolone SOD SUCC 40 MG/ML VIAL IV SCH ×3 (04:51→20:52)
[2019-07-25] MEDS: HYDROCODONE/APAP 5/325MG 1 EACH TABLET PO PRN ×3 (04:52→18:20)
[2019-07-25 06:12] LABS: BASOPHILS % (AUTO) 0.2 % (0.0-2.0); HEMATOCRIT 36 % (33-45); HEMOGLOBIN 11.9 g/dL (11.5-14.8); LYMPHOCYTES % (AUTO) 12.6 % (20.0-44.0); MEAN CORPUSCULAR HGB CONC 33 g/dl (31.0-36.0); MEAN CORPUSCULAR VOLUME 86 fL (82-100); MONOCYTES # (AUTO) 0.1 /CMM (0.1-1.30); MONOCYTES % (AUTO) 1.3 % (2.0-12.0); NEUTROPHILS % (AUTO) 85.9 % (43.0-81.0); PLATELET COUNT (AUTO) 249 /CMM (150-450); WHITE BLOOD COUNT (AUTO) 8.1 K/uL (4.3-11.0)
[2019-07-25 07:03] LABS: ALANINE AMINOTRANSFERASE 27 U/L (12-78); ALBUMIN 3.2 g/dL (3.4-5.0); ALKALINE PHOSPHATASE 149 U/L (46-116); ASPARTATE AMINOTRANSFERASE 15 U/L (15-37); BILIRUBIN,TOTAL 0.4 mg/dL (0.2-1.0); CALCIUM, SERUM 9.2 mg/dL (8.5-10.1); CARBON DIOXIDE 29 mmol/L (21-32); CHLORIDE 96 mmol/L (98-107); CREATININE 1.6 mg/dL (0.6-1.3); GLUCOSE 143 mg/dL (74-106); PHOSPHORUS 5.2 mg/dL (2.5-4.9); POTASSIUM 3.6 mmol/L (3.5-5.1); SODIUM SERUM 136 mmol/L (136-145); TOTAL PROTEIN, SERUM 7.7 g/dL (6.4-8.2); UREA NITROGEN, BLOOD 28 mg/dL (7-18)
--- NOTE | 2019-07-25 07:10 | NUR ---
msrn VERBALIZES GEN PAIN HUBERT LEFT LEG WITH MESA, PREFERS MORPHINE THIS TIME. ADM.
[2019-07-25] MEDS: ALBUTEROL HALF STRENGTH 1.25 MG/3 ML VIAL.NEB NEB SCH ×5 (07:36→23:34)
[2019-07-25 08:00] VITALS: BP_SYST 108; BP_SYST 109; BP_DIAS 74
[2019-07-25] MEDS: LISINOPRIL (5MG) 5 MG TABLET PO SCH (09:00)
[2019-07-25] MEDS: METFORMIN 500 MG TABLET PO SCH ×2 (09:00→16:02)
[2019-07-25] MEDS: FLUTICASONE/VILANTEROL 1 EACH BLST.W.DEV IH SCH (09:37)
[2019-07-25] MEDS: CARVEDILOL 6.25 MG TABLET PO SCH ×2 (09:38→16:09)
[2019-07-25] MEDS: DOCUSATE SODIUM 100 MG CAPSULE PO SCH ×2 (09:38→16:08)
[2019-07-25] MEDS: ACIDOPHILUS/BULGARICUS 1 EACH TAB.CHEW PO SCH ×2 (09:38→16:08)
[2019-07-25] MEDS: ASCORBIC ACID 500 MG TABLET PO SCH (09:39)
[2019-07-25] MEDS: ALPRAZOLAM 0.5 MG TABLET PO PRN (09:39)
[2019-07-25] MEDS: GABAPENTIN 100 MG CAPSULE PO SCH ×2 (09:39→16:08)
--- NOTE | 2019-07-25 09:39 | NUR ---
rn notes administered Xanax 0.5 mg po prn for anxiety per patient request.
[2019-07-25] MEDS: PANTOPRAZOLE 40 MG TABLET.DR PO SCH (09:40)
[2019-07-25] MEDS: ZINC SULFATE 220 MG CAPSULE PO SCH (09:40)
[2019-07-25] MEDS: ESCITALOPRAM OXALATE (10 MG) 10 MG TABLET PO SCH (09:41)
[2019-07-25] MEDS: ENOXAPARIN SODIUM 40 MG/0.4 ML DISP.SYRIN SQ SCH (09:43)
[2019-07-25] MEDS: ASPIRIN 81 MG TAB.CHEW PO SCH (09:47)
[2019-07-25] MEDS: ONDANSETRON HCL/PF 4 MG/2 ML VIAL IVP PRN (10:17)
--- NOTE | 2019-07-25 10:17 | NUR ---
rn notes administered Zofran 4 mg/ml iv push for nausea, vomiting.
--- NOTE | 2019-07-25 10:44 | NUR ---
RN NOTES ADMINISTERED NARCO 5/325 MG PO PRN FOR GENERALIZED PAIN. V/S TAKEN BP 112/74, P-88, CONTINUED MONITORING.
[2019-07-25 12:00] VITALS: BP 131/73
[2019-07-25] MEDS: VANCOMYCIN 1 GM in IV D5W 250 ML IV SCH (12:04)
[2019-07-25] MEDS: POTASSIUM CHLORIDE 20 MEQ TAB.PRT.SR PO SCH ×3 (12:06→14:02)
[2019-07-25] MEDS: FUROSEMIDE 40 MG/4 ML VIAL IV SCH ×3 (12:09→20:52)
--- NOTE | 2019-07-25 13:00 | NUR ---
RN NOTES BS-154 MG/DL NO COVERAGE, MEDICATION WERE ADMINISTERED FOR PAIN EFFECTIVE, PATIENT TOLERATED LUNCH WELL, CALL LIGHT WITHIN TO REACH, CONTINUED MONITORING.
[2019-07-25] MEDS: SOD FERRIC GLUC 125 MG in IV NS 0.9% 100 ML IV SCH (14:02)
[2019-07-25 16:00] VITALS: BP 122/70
--- NOTE | 2019-07-25 18:20 | NUR ---
RN NOTES ADMINISTERED NARCO 5/325 MG PO PRN FOR GENERALIZED PAIN, V/S TAKEN BP 120/71, P-78. ALSO ADMINISTERED SCHEDULED MEDICATION, PATIENT AMBULATORY USING BATHROOM, NO ACUTE RESPIRATORY DISTRESS, CALL LIGHT WITHIN TO REACH. ENDORSED ONCOMING NURSE FOLLOW PLAN OF CARE.
--- NOTE | 2019-07-25 19:15 | NUR ---
MS RN NOTES RECEIVED PT IN BED AWAKE AND ABLE TO MAKE NEEDS KNOWN. PT A/O X3 BENGALI/PANAMANIAN SPEAKING. RESPIRATIONS EVEN AND UNLABORED WITH NO S/S OF ACUTE DISTRESS OR SOB NOTED. NO COMPLAINTS OF PAIN AT THIS TIME. PT WITH RAC #20G PATENT AND INTACT. SAFETY MEASURES IN PLACE WITH BED IN LOWEST LOCKED POSITION WITH SIDE RAILS UP X2. CALL LIGHT WITHIN REACH. WILL CONTINUE TO MONITOR.
[2019-07-25 20:00] VITALS: BP 129/68
[2019-07-26] MEDS: PIPERACILLIN /TAZOBACTAM 2.25 G in IV D5W 50 ML IV SCH ×2 (00:12→06:15)
[2019-07-26] MEDS: HYDROCODONE/APAP 5/325MG 1 EACH TABLET PO PRN ×3 (00:13→15:14)
[2019-07-26] MEDS: ALBUTEROL HALF STRENGTH 1.25 MG/3 ML VIAL.NEB NEB SCH ×6 (02:33→23:09)
[2019-07-26] MEDS: methylPREDNISolone SOD SUCC 40 MG/ML VIAL IV SCH ×3 (05:57→20:23)
--- NOTE | 2019-07-26 06:51 | NUR ---
MS RN NOTES STILL AWAITING VANCO TROUGH FROM LAB. WILL CONTINUE TO MONITOR.
--- NOTE | 2019-07-26 07:00 | NUR ---
MS RN NOTES PT IN BED AWAKE AND ABLE TO MAKE NEEDS KNOWN. PT A/O X3 PUERTO RICAN/JAMAICAN SPEAKING. RESPIRATIONS EVEN AND UNLABORED WITH NO S/S OF ACUTE DISTRESS OR SOB NOTED THROUGHOUT SHIFT. NO COMPLAINTS OF PAIN AT THIS TIME. PT WITH RAC #20G PATENT AND INTACT. SAFETY MEASURES IN PLACE WITH BED IN LOWEST LOCKED POSITION WITH SIDE RAILS UP X2. CALL LIGHT WITHIN REACH. WILL ENDORSE TO ONCOMING NURSE FOR KEISHA.
[2019-07-26 07:16] LABS: BASOPHILS # (AUTO) 0.1 /CMM (0.0-0.2); BASOPHILS % (AUTO) 0.7 % (0.0-2.0); HEMATOCRIT 38 % (33-45); HEMOGLOBIN 12.3 g/dL (11.5-14.8); LYMPHOCYTES # (AUTO) 2.2 /CMM (0.8-4.8); LYMPHOCYTES % (AUTO) 11.2 % (20.0-44.0); MEAN CORPUSCULAR HGB CONC 33 g/dl (31.0-36.0); MEAN CORPUSCULAR VOLUME 86 fL (82-100); MONOCYTES # (AUTO) 0.7 /CMM (0.1-1.30); MONOCYTES % (AUTO) 3.4 % (2.0-12.0); NEUTROPHILS # (AUTO) 16.4 /CMM (1.8-8.9); NEUTROPHILS % (AUTO) 84.7 % (43.0-81.0); RED BLOOD CELL COUNT(AUTO) 4.35 MIL/uL (4.0-5.2); WHITE BLOOD COUNT (AUTO) 19.3 K/uL (4.3-11.0)
[2019-07-26 07:25] LABS: CALCIUM, SERUM 8.7 mg/dL (8.5-10.1); CREATININE 1.8 mg/dL (0.6-1.3); POTASSIUM 3.9 mmol/L (3.5-5.1)
[2019-07-26 08:15] VITALS: BP 132/73
[2019-07-26] MEDS: ESCITALOPRAM OXALATE (10 MG) 10 MG TABLET PO SCH (09:30)
[2019-07-26] MEDS: GABAPENTIN 100 MG CAPSULE PO SCH ×2 (09:32→18:05)
[2019-07-26] MEDS: DOCUSATE SODIUM 100 MG CAPSULE PO SCH ×2 (09:32→18:06)
[2019-07-26] MEDS: METFORMIN 500 MG TABLET PO SCH (09:33)
[2019-07-26] MEDS: ASPIRIN 81 MG TAB.CHEW PO SCH (09:33)
[2019-07-26] MEDS: ASCORBIC ACID 500 MG TABLET PO SCH (09:33)
[2019-07-26] MEDS: ZINC SULFATE 220 MG CAPSULE PO SCH (09:33)
[2019-07-26] MEDS: ACIDOPHILUS/BULGARICUS 1 EACH TAB.CHEW PO SCH ×2 (09:33→18:06)
[2019-07-26] MEDS: CARVEDILOL 6.25 MG TABLET PO SCH ×2 (09:34→18:06)
[2019-07-26] MEDS: LISINOPRIL (5MG) 5 MG TABLET PO SCH (09:34)
[2019-07-26] MEDS: ENOXAPARIN SODIUM 40 MG/0.4 ML DISP.SYRIN SQ SCH (09:35)
[2019-07-26] MEDS: PANTOPRAZOLE 40 MG TABLET.DR PO SCH (09:45)
[2019-07-26] MEDS: FLUTICASONE/VILANTEROL 1 EACH BLST.W.DEV IH SCH (09:45)
[2019-07-26] MEDS: FUROSEMIDE 40 MG TABLET PO SCH (11:46)
[2019-07-26] MEDS: POTASSIUM CHLORIDE 20 MEQ TAB.PRT.SR PO SCH (11:47)
[2019-07-26 11:59] LABS: LYMPHOCYTES % (MANUAL) 14 % (16-48); MONOCYTES % (MANUAL) 4 % (0-11.0); NEUTROPHILS % (MANUAL) 82 (42-76)
[2019-07-26 12:02] LABS: PLATELET COUNT (AUTO) 237 /CMM (150-450)
[2019-07-26] MEDS: ALPRAZOLAM 0.5 MG TABLET PO PRN (12:36)
[2019-07-26] MEDS: SOD FERRIC GLUC 125 MG in IV NS 0.9% 100 ML IV SCH (15:05)
[2019-07-26 16:00] VITALS: BP 126/69
--- NOTE | 2019-07-26 18:00 | NUR ---
med. x 2 for pain.cooperative.med compliant.
--- NOTE | 2019-07-26 19:52 | NUR ---
RN OPEN NOTES PATIENT IS LAYING IN BED WATCHING TV. ON 1.5L NASAL CANULA. NO SOB/ ACUTE RESPIRATORY DISTRESS NOTED. BED IS IN LOWEST LOCKED POSITION. CALL LIGHT IS WITHIN REACH. WILL CONTINUE TO MONITOR.
[2019-07-26 20:00] VITALS: BP 139/53
[2019-07-26] MEDS: MORPHINE SULFATE INJ 2 MG/ML DISP.SYRIN IM PRN (21:40)
--- NOTE | 2019-07-26 21:40 | NUR ---
RN NOTES ADMINISTERED MORPHINE PER PATIENT'S REQUEST. 1ML Q3H PRN. WILL CONTINUE TO MONITOR.
[2019-07-27] MEDS: ALBUTEROL HALF STRENGTH 1.25 MG/3 ML VIAL.NEB NEB SCH ×3 (02:36→11:52)
[2019-07-27] MEDS: methylPREDNISolone SOD SUCC 40 MG/ML VIAL IV SCH ×2 (04:09→12:30)
[2019-07-27 04:49] VITALS: BP 139/53
[2019-07-27 06:30] LABS: BASOPHILS % (AUTO) 0.1 % (0.0-2.0); HEMATOCRIT 35 % (33-45); HEMOGLOBIN 11.4 g/dL (11.5-14.8); LYMPHOCYTES # (AUTO) 1.7 /CMM (0.8-4.8); LYMPHOCYTES % (AUTO) 12.6 % (20.0-44.0); MEAN CORPUSCULAR HGB CONC 33 g/dl (31.0-36.0); MEAN CORPUSCULAR VOLUME 86 fL (82-100); MONOCYTES # (AUTO) 0.5 /CMM (0.1-1.30); MONOCYTES % (AUTO) 3.5 % (2.0-12.0); NEUTROPHILS # (AUTO) 11.5 /CMM (1.8-8.9); NEUTROPHILS % (AUTO) 83.8 % (43.0-81.0); PLATELET COUNT (AUTO) 263 /CMM (150-450); RED BLOOD CELL COUNT(AUTO) 4.03 MIL/uL (4.0-5.2); WHITE BLOOD COUNT (AUTO) 13.8 K/uL (4.3-11.0)
--- NOTE | 2019-07-27 06:43 | NUR ---
RN CLOSE NOTES PATIENT IS WATCHING TV IN BED. BED IS IN LOWEST LOCKED POSITION WITH SIDE RAILS UP X2. CALL LIGHT IS WITHIN REACH. ALL DUE MEDS GIVEN. IV ON R AC #20G IS PATENT AND INTACT, ABLE TO FLUSH EASILY. ON 1.5L NC SATURATING AT 98%. NO SOB/ ACUTE RESPIRATORY DISTRESS NOTED. NO COMPLAINTS OF PAIN AT THE MOMENT. WILL ENDORSE TO AM NURSE.
[2019-07-27 07:00] LABS: CALCIUM, SERUM 8.6 mg/dL (8.5-10.1); CREATININE 1.5 mg/dL (0.6-1.3); POTASSIUM 4.2 mmol/L (3.5-5.1)
[2019-07-27] MEDS ORDERED: GABA-532 PO (07:06)
--- NOTE | 2019-07-27 07:39 | NUR ---
RECEIVED PT ON R/A. PATIENT AWAKE, ALERT, AND RESPONSIVE. (SP02 97% , HR 69) BREATHING TX TOLERATED WELL. NO SOB NOTED.
--- NOTE | 2019-07-27 08:00 | NUR ---
MS RN OPENING NOTES RECEIVED PATIENT IN BED WATCHING TV. AOX3. NO CARDIAC OR RESP DISTRESS NOTED. BREATHING EVEN AND UNLABORED. ON O2 AT 1.5L/MIN. SATURATING WELL AT 95%. NO SOB NOTED. IV ACCESS NOTED ON R AC #20G IS PATENT AND INTACT, FLUSHING WELL. SAFETY PRECAUTIONS IN PLACE. BED LOCKED AND IN LOW POSITION. SIDE RAILS UP X2. CALL LIGHT WITHIN REACH. WILL CONT TO MONITOR.
[2019-07-27 08:11] VITALS: BP 145/67
[2019-07-27] MEDS: PANTOPRAZOLE 40 MG TABLET.DR PO SCH (08:14)
[2019-07-27] MEDS: FLUTICASONE/VILANTEROL 1 EACH BLST.W.DEV IH SCH (08:57)
[2019-07-27] MEDS: DOCUSATE SODIUM 100 MG CAPSULE PO SCH (08:57)
[2019-07-27] MEDS: ESCITALOPRAM OXALATE (10 MG) 10 MG TABLET PO SCH (08:57)
[2019-07-27 08:58] VITALS: BP 145/67
[2019-07-27] MEDS: GABAPENTIN 100 MG CAPSULE PO SCH (08:58)
[2019-07-27] MEDS: FUROSEMIDE 40 MG TABLET PO SCH (08:58)
[2019-07-27] MEDS: CARVEDILOL 6.25 MG TABLET PO SCH (08:58)
[2019-07-27] MEDS: ACIDOPHILUS/BULGARICUS 1 EACH TAB.CHEW PO SCH (08:58)
[2019-07-27] MEDS: ASCORBIC ACID 500 MG TABLET PO SCH (08:59)
[2019-07-27] MEDS: ENOXAPARIN SODIUM 40 MG/0.4 ML DISP.SYRIN SQ SCH (08:59)
[2019-07-27] MEDS: POTASSIUM CHLORIDE 20 MEQ TAB.PRT.SR PO SCH (08:59)
[2019-07-27] MEDS: ASPIRIN 81 MG TAB.CHEW PO SCH (08:59)
[2019-07-27] MEDS: ZINC SULFATE 220 MG CAPSULE PO SCH (09:01)
[2019-07-27] MEDS: MORPHINE SULFATE INJ 2 MG/ML DISP.SYRIN IM PRN (09:03)
--- NOTE | 2019-07-27 09:45 | NUR ---
L LEG PAIN PT COMPLAINED OF L LEG PAIN 10/29. ADMINISTERED MORPHINE PRN. REASSESSED AFTER 30 MIN. PT VERBALIZED RELIEF.
[2019-07-27] MEDS: SOD FERRIC GLUC 125 MG in IV NS 0.9% 100 ML IV SCH (14:00)
--- NOTE | 2019-07-27 15:00 | NUR ---
D/C HOME PT DISCHARGED HOME IN STABLE CONDITION. NO CARDIAC OR RESPIRATORY DISTRESS NOTED. NO SOB NOTED. NO COMPLAINTS OF PAIN OR DISCOMFORT. ALL D/C INSTRUCTIONS AND MEDS REVIEWED WITH PT IN LAYMENS TERM. D/C PACKET PROVIDED TO PT. PT UNDERSTOOD TEACHING. BODY CHECK DONE. PICTURES TAKEN AND PLACED IN THE CHART. IV ACCESS REMOVED. NO S/S OF BLEEDING NOTED. APPLIED PRESSURE DRESSING. PT LEFT THE HOSPITAL AND WAS PICKED UP BY HER SON VIA PRIVATE CAR. PT ALSO REFUSED TO TAKE 2PM FERRLICIT. STATED THAT SHE NEEDED TO LEAVE ALREADY AND THAT HER SON IS OUTSIDE TO PICK HER UP.
== END 2019-07-27 16:30 | disposition home or self-care (01) | DRG 291 ==
LOC: MED 19:58 → TELE 22:24 → MED 07-24 14:41
PROVIDERS: ADMIT Internal Medicine; ATTEND Family Medicine
DX: I13.0 Hypertensive heart and chronic kidney disease with heart failure and stage 1 through stage 4 chronic kidney disease, or unspecified chronic kidney disease (principal); I50.33 Acute on chronic diastolic (congestive) heart failure; N17.0 Acute kidney failure with tubular necrosis; E44.1 Mild protein-calorie malnutrition; J44.1 Chronic obstructive pulmonary disease with (acute) exacerbation; L03.116 Cellulitis of left lower limb; L03.115 Cellulitis of right lower limb; D68.69 Other thrombophilia; E11.22 Type 2 diabetes mellitus with diabetic chronic kidney disease; N18.9 Chronic kidney disease, unspecified; D63.8 Anemia in other chronic diseases classified elsewhere; E03.9 Hypothyroidism, unspecified; Z85.43 Personal history of malignant neoplasm of ovary; Z79.899 Other long term (current) drug therapy; Z86.718 Personal history of other venous thrombosis and embolism; Z90.710 Acquired absence of both cervix and uterus; I08.0 Rheumatic disorders of both mitral and aortic valves; D50.9 Iron deficiency anemia, unspecified; E66.9 Obesity, unspecified; Z68.29 Body mass index [BMI] 29.0-29.9, adult; M19.011 Primary osteoarthritis, right shoulder; E88.09 Other disorders of plasma-protein metabolism, not elsewhere classified; Z79.84 Long term (current) use of oral hypoglycemic drugs; F17.210 Nicotine dependence, cigarettes, uncomplicated; F41.9 Anxiety disorder, unspecified; F32.9 Major depressive disorder, single episode, unspecified; I87.2 Venous insufficiency (chronic) (peripheral); E11.51 Type 2 diabetes mellitus with diabetic peripheral angiopathy without gangrene; E11.40 Type 2 diabetes mellitus with diabetic neuropathy, unspecified
CPT/HCPCS: 36415; 71045-TC; 73030-TC; 80048-TC; 80053-TC; 80061-TC; 80202-TC; 82962-TC; 83540-TC; 83735-TC; 84100-TC; 84439-TC; 84443-TC; 84484-TC; 85025-TC; 87081-TC; 94799-TC; 97116-TC; 97530-TC; G0378; J1650; J1815; J1940; J2270; J2405; J2543; J2916; J2920; J3370; J7030; J7050; J7060

== ENCOUNTER 2020-12-09 19:28 | Inpatient (IN) | payer MEDICARE, OTHER ==
[~2020-12-09] VITALS: Ht 167.6 cm; Wt 90.7 kg
[~2020-12-09 19:28] MED LIST changes: +ALPR0.5T PO; -AZIT500T2 PO; +CALC60OI4 TP; +ESCI5TAB PO; +GABA-532 PO; +LIDO30CR TP; +MUPI22OI2 TP
--- NOTE | 2020-12-09 19:53 | NUR ---
PT BIBRA 96%. ALERT ORIENTED X4 C/O PAIN ON RIGHT LOWER LATERAL AND MEDIAL WOUND PAIN
[2020-12-09 20:55] LABS: BASOPHILS # (AUTO) 0.1 K/uL (0.0-0.2); BASOPHILS % (AUTO) 0.5 % (0.0-2.0); EOSINOPHILS % (AUTO) 2.3 % (0.0-6.0); HEMATOCRIT 32 % (33-45); HEMOGLOBIN 10.4 g/dL (11.5-14.8); LYMPHOCYTES # (AUTO) 2.5 K/uL (0.8-4.8); MEAN CORPUSCULAR HGB CONC 33 g/dl (31.0-36.0); MEAN CORPUSCULAR VOLUME 88 fL (82-100); MONOCYTES # (AUTO) 0.6 K/uL (0.1-1.30); MONOCYTES % (AUTO) 5.7 % (2.0-12.0); NEUTROPHILS # (AUTO) 7.4 K/uL (1.8-8.9); NEUTROPHILS % (AUTO) 68.5 % (43.0-81.0); PLATELET COUNT (AUTO) 286 K/uL (150-450); RED BLOOD CELL COUNT(AUTO) 3.62 MIL/uL (4.0-5.2); WHITE BLOOD COUNT (AUTO) 10.8 K/uL (4.3-11.0)
[2020-12-09] MEDS ORDERED: PIPERACILLIN /TAZOBACTAM 3.375 G VIAL IV ONE (21:00)
[2020-12-09] MEDS ORDERED: MORPHINE SULFATE INJ 2 MG/ML DISP.SYRIN IV ONE (21:00)
[2020-12-09] MEDS ORDERED: PIPERACILLIN /TAZOBACTAM 3.375 G in IV D5W 50 ML IV ONE (21:00)
[2020-12-09] MEDS ORDERED: VANCOMYCIN 1 GM in IV D5W 250 ML IV ONE (21:00)
[2020-12-09] MEDS ORDERED: VANCOMYCIN 1 GM VIAL ONE (21:00)
[2020-12-09] MEDS ORDERED: ONDANSETRON HCL/PF 4 MG/2 ML VIAL IV ONE (21:00)
[2020-12-09] MEDS ORDERED: IV NS 0.9% 1,000 ML BAG IV ONE (21:00)
[2020-12-09] MEDS ORDERED: ONDANSETRON HCL/PF 4 MG/2 ML VIAL ONE (21:12)
[2020-12-09] MEDS ORDERED: MORPHINE SULFATE INJ 4 MG/ML DISP.SYRIN ONE (21:12)
[2020-12-09 21:39] LABS: CALCIUM, SERUM 8.2 mg/dL (8.5-10.1); CREATININE 1.7 mg/dL (0.6-1.3); POTASSIUM 4.3 mmol/L (3.5-5.1)
[2020-12-09] MEDS ORDERED: ALBUTEROL SULFATE INH 18 GM HFA.AER.AD IH PRN (22:00)
[2020-12-09] MEDS ORDERED: ALPRAZOLAM 0.5 MG TABLET PO PRN (22:00)
[2020-12-09] MEDS ORDERED: HYDROMORPHONE 1 MG/1 ML DISP.SYRIN ONE (22:10)
--- NOTE | 2020-12-09 22:15 | NUR ---
patient still complaining of pain on right lower leg open wound despite of morphine IVP. MD made aware with new ordered Dilaudid. administered as ordered.
[2020-12-09] MEDS ORDERED: DEXTROSE 50%-WATER 50 ML DISP.SYRIN IV PRN (22:30)
[2020-12-09] MEDS ORDERED: HYDROMORPHONE 1 MG/1 ML DISP.SYRIN IV ONE (22:30)
[2020-12-09] MEDS: BLOOD SUGAR DIAGNOSTIC 1 EACH STRIP IN SCH (23:05)
[2020-12-09 23:52] LABS: BILIRUBIN,URINE Negative (NEGATIVE); COLOR,URINE YELLOW (YELLOW); LEUKOCYTE ESTERASE ,URINE Trace (NEGATIVE); NITRITE, URINE Negative (NEGATIVE); PROTEIN,URINE 100 mg/dl (NEGATIVE); UGLUCOSE Negative (NEGATIVE); UROBILINOGEN,URINE 0.2 EU/dL (0.2)
[2020-12-09 23:54] LABS: BACTERIA,URINE Few /HPF (None Seen); RBC,URINE NONE SEEN /HPF (0-2); SQUAMOUS EPITHELIAL CELL,UR Few /HPF (None Seen)
[2020-12-10] MEDS ORDERED: MORPHINE SULFATE INJ 2 MG/ML DISP.SYRIN IV PRN
[2020-12-10] MEDS ORDERED: MORPHINE SULFATE INJ 2 MG/ML DISP.SYRIN ONE (02:27)
[2020-12-10] MEDS ORDERED: CEFEPIME 1 GM in IV D5W 50 ML IV SCH (02:35)
--- NOTE | 2020-12-10 02:43 | NUR ---
patient woke up still complaining of right lower leg pain at scale of 7-8/10. PRN medicine Morphine administered as ordered.
[2020-12-10] MEDS ORDERED: CEFEPIME 1 GM VIAL ONE (02:47)
[2020-12-10] MEDS ORDERED: ALBUTEROL FS 2.5 MG/3 ML VIAL.NEB NEB PRN (03:00)
[2020-12-10] MEDS ORDERED: HYDROMORPHONE 1 MG/1 ML DISP.SYRIN ONE (04:25)
--- NOTE | 2020-12-10 04:31 | NUR ---
0400 am - patient still complaining of excruciating pain on left lower leg wound despite morphine 2 mg admnistered with new order to changed pain medicine to Dilaudid 1 mg Q3H PRN noted and carried out order and admnistered to patient.
[2020-12-10] MEDS: HYDROMORPHONE 1 MG/1 ML DISP.SYRIN IV PRN ×4 (04:35→20:41)
--- NOTE | 2020-12-10 06:27 | NUR ---
MOVE PATIENT TO THE FLOOR ON ROOM 117-1. UNDER DR. VARELA. REPORT GIVEN TO PATRICIA FOR CONTINUITY OF CARE. VSS. NO CHANGE FROM HER MENTAL STATUS REMAINED AOX4. PATIENT MOVED VIA STRETCHER.
[2020-12-10 06:30] VITALS: BP 102/65
--- NOTE | 2020-12-10 06:30 | NUR ---
RN NOTE RECEIVED PATIENT VIA GURNEY. TRANSFERRED TO BED WITHOUT INJURY. A/OX3. TOLERATING ROOM AIR. RESPIRATIONS ARE EVEN AND UNLABORED. NO S/S SOB NOTED. C/O PAIN 9/10 IN RIGHT LOWER LEG. IV ACCESS IN RAC#20 PATENT AND SALINE LOCKED. SKIN ASSESSMENT CONDUCTED , PHOTOS TAKEN AND PLACED IN CHART. BED IS LOW AND LOCKED, HOB ELEVATED IN SEMI FOWLERS, SIDE RAILS UP X2, CALL LIGHT WITHIN REACH. EXPLAINED USE. WILL ENDORSE TO DAY SHIFT.
--- NOTE | 2020-12-10 07:35 | NUR ---
RN OPENING NOTES; RECEIVED PT IN BED RESTING IN SUPINE POS. PT IS NICARAGUAN SPEAKING BUT CAN MAKE HER NEEDS KNOWN. PT ON RA AND TOLERATING IT WELL. R FOOT ULCER NOTED, NO DRAINAGE NOTED. RAC#20 NOTED, NO FLUIDS AT THIS TIME. SAFETY MEASURES RENDERED, BED IN LOWEST POSITION, LOCKED, WITH CALL LIGHT WITHIN REACH. WILL CONTINUE TO MONITOR.
[2020-12-10] MEDS: BLOOD SUGAR DIAGNOSTIC 1 EACH STRIP IN SCH ×4 (07:42→22:00)
[2020-12-10] MEDS: INSULIN REGULAR, HUMAN 100 UNIT/ML 3 ML VIAL SQ PRN ×3 (07:42→16:34)
--- NOTE | 2020-12-10 07:43 | NUR ---
RN NOTES B/S TAKEN AT 78. NO INSULIN NEEDED PER SLIDING SCALE.
[2020-12-10] MEDS: DILTIAZEM HCL 30 MG TABLET PO SCH ×2 (08:28→16:11)
[2020-12-10] MEDS: CARVEDILOL 6.25 MG TABLET PO SCH ×2 (08:28→16:11)
[2020-12-10] MEDS: LISINOPRIL (5MG) 5 MG TABLET PO SCH (08:29)
--- NOTE | 2020-12-10 08:29 | NUR ---
RN NOTES; ALL BLOOD PRESSURE MEDICATIONS HELD. PT HAD BP 102/65. WILL CONTINUE TO MONITOR.
[2020-12-10] MEDS: ESCITALOPRAM OXALATE (10 MG) 10 MG TABLET PO SCH (08:31)
[2020-12-10] MEDS: GABAPENTIN 100 MG CAPSULE PO SCH ×3 (08:31→16:11)
[2020-12-10] MEDS: FUROSEMIDE 20 MG TABLET PO SCH (08:32)
[2020-12-10] MEDS: ASPIRIN 81 MG TAB.CHEW PO SCH (08:32)
[2020-12-10] MEDS ORDERED: CLINDAMYCIN 900 MG in IV D5W 100 ML IV SCH (09:00)
[2020-12-10] MEDS: FLUTICASONE/VILANTEROL 1 EACH BLST.W.DEV IH SCH (09:00)
[2020-12-10] MEDS ORDERED: FLUTICASONE/SALMETEROL 1 DISK IH SCH (09:00)
--- NOTE | 2020-12-10 10:06 | NUR ---
WOUND CARE CONSULT: PT PRESENTS WITH RT LOWER LEG ULCERS, PRESENT ON ADMISSION. DPM CONSULT CALLED TO DR HAMPAPUR. BRANNON IN AGREEMENT WITH PLAN OF CARE.
--- NOTE | 2020-12-10 11:04 | NUR ---
RN NOTES; B/S TAKEN AT 85. NO INSULIN NEEDED PER SLIDING SCALE. MD AWARE OF BP MEDICATION BEING HELD THIS MORNING. NO NEW ORDERS. CONTINUE TO MONITOR.
[2020-12-10 12:00] VITALS: BP 110/72
--- NOTE | 2020-12-10 12:52 | NUR ---
RN NOTES; PT SON JIMENA CALLED TO CHECK STATUS OF PT. JIMENA WOULD LIKE TO BE CALLED WHEN MOTHER IS D/C. HE WILL BE THE ONE TO TRANSPORT HER HOME. Addendum: 12/10/20 at 1254 by KEYON HERNANDEZ RN JIMENA NUMBER IS [phone]
[2020-12-10] MEDS: CEFEPIME 2 GM in IV D5W 100 ML IV SCH (13:13)
--- NOTE | 2020-12-10 16:34 | NUR ---
RN NOTES; B/S TAKEN AT 83MM/HG. NO INSULIN NEEDED PER SLIDING SCALE.
--- NOTE | 2020-12-10 18:15 | NUR ---
RN CLOSING NOTES; PT A/OX4. MONITORED FOR B/S. ALL WNL, NO INSULIN NEEDED. PT HAD MRI DONE. CONSENT FOR SERIAL EXCISIONAL WOUND DEBRIDEMENT OF BILATERAL LOWER EXTREMITIES SIGNED. WOUND DRESSING ON R FOOT ULCER DONE. NO SIGNIFICANT CHANGES DURING SHIFT. SAFETY MEASURES RENDERED, BED IN LOWEST POS. LOCKED, WITH CALL LIGHT WITHIN REACH. ENDORSED TO FIVE ROLL REFINER BATCH MIXER RN IN STABLE CONDITION.
--- NOTE | 2020-12-10 19:46 | NUR ---
RN NOTE REPORT GIVEN TO PRETTY FOR KEISHA.
[2020-12-10 20:00] VITALS: BP 98/68
--- NOTE | 2020-12-10 20:00 | NUR ---
PATIENT CAME ON THE FLOOR FROM [place], AWAKE, A/O X4. NO S/S OF DISTRESS NOTED. CALL LIGHT WITHIN REACH. BED IN LOWEST AND LOCKED POSITION.
--- NOTE | 2020-12-10 20:06 | NUR ---
RN NOTE PT TRANSFERRED TO [facility]IA [facility] FOR KEISHA.
[2020-12-10] MEDS: VANCOMYCIN 1 GM in IV D5W 250 ML IV SCH (20:49)
--- NOTE | 2020-12-10 22:07 | NUR ---
BLOOD [id number], NO INSULIN COVERAGE NEEDED.
[2020-12-11] MEDS: CEFEPIME 2 GM in IV D5W 100 ML IV SCH ×2 (01:26→14:00)
[2020-12-11] MEDS: HYDROMORPHONE 1 MG/1 ML DISP.SYRIN IV PRN ×4 (01:26→22:20)
[2020-12-11] MEDS: THERAHONEY GEL 1.5 OZ TUBE TP SCH (01:35)
--- NOTE | 2020-12-11 01:35 | NUR ---
RIGHT ANKLE ULCERS- RIGHT AND LEFT SIDES, WOUND TREATMENTS DONE- CLEANSED WITH NS, PAT DRY, THERAHONEY APPLIED INTO THE WOUNDS AND COVERED WITH DRY DRESSING. OFFLOADED. PATIENT ABLE TO TURN AND REPOSITION HERSELF IN BED.
[2020-12-11] MEDS: BLOOD SUGAR DIAGNOSTIC 1 EACH STRIP IN SCH ×4 (06:29→21:58)
[2020-12-11 06:46] LABS: BASOPHILS % (AUTO) 0.3 % (0.0-2.0); EOSINOPHILS % (AUTO) 2.7 % (0.0-6.0); HEMATOCRIT 29 % (33-45); HEMOGLOBIN 9.5 g/dL (11.5-14.8); LYMPHOCYTES # (AUTO) 2.2 K/uL (0.8-4.8); LYMPHOCYTES % (AUTO) 27.1 % (20.0-44.0); MEAN CORPUSCULAR HGB CONC 33 g/dl (31.0-36.0); MEAN CORPUSCULAR VOLUME 88 fL (82-100); MONOCYTES # (AUTO) 0.5 K/uL (0.1-1.30); MONOCYTES % (AUTO) 6.6 % (2.0-12.0); NEUTROPHILS % (AUTO) 63.3 % (43.0-81.0); PLATELET COUNT (AUTO) 254 K/uL (150-450); RED BLOOD CELL COUNT(AUTO) 3.27 MIL/uL (4.0-5.2)
[2020-12-11 06:59] LABS: IRON, SERUM 36 ug/dl (50-175); TOTAL IRON BINDING CAPACITY 268 ug/dl (250-450)
[2020-12-11 07:00] LABS: CALCIUM, SERUM 8.5 mg/dL (8.5-10.1); CREATININE 1.4 mg/dL (0.6-1.3); POTASSIUM 3.9 mmol/L (3.5-5.1)
--- NOTE | 2020-12-11 07:35 | NUR ---
RN OPENING NOTES Patient seen comfortably lying in bed, breathing even and unlabored, no SOB, no apparent distress noted, denies any pain or discomfort at this time. Call light left within reach, safety precautions in place, brakes locked, side rails up X 2, will monitor closely for any changes.
[2020-12-11 08:00] VITALS: BP 131/66
[2020-12-11] MEDS: ESCITALOPRAM OXALATE (10 MG) 10 MG TABLET PO SCH (08:55)
[2020-12-11] MEDS: ASPIRIN 81 MG TAB.CHEW PO SCH (08:55)
[2020-12-11] MEDS: GABAPENTIN 100 MG CAPSULE PO SCH ×3 (08:55→16:26)
[2020-12-11] MEDS: FLUTICASONE/VILANTEROL 1 EACH BLST.W.DEV IH SCH (08:55)
[2020-12-11] MEDS: LISINOPRIL (5MG) 5 MG TABLET PO SCH (08:56)
[2020-12-11] MEDS: DILTIAZEM HCL 30 MG TABLET PO SCH ×2 (08:56→17:00)
[2020-12-11] MEDS: CARVEDILOL 6.25 MG TABLET PO SCH ×2 (08:56→17:00)
[2020-12-11] MEDS: FUROSEMIDE 20 MG TABLET PO SCH (08:58)
[2020-12-11 16:00] VITALS: BP 104/59
[2020-12-11] MEDS: METRONIDAZOLE 500 MG TABLET PO SCH ×2 (18:26→21:57)
--- NOTE | 2020-12-11 18:40 | NUR ---
RN CLOSING NOTES Patient lying in bed, ao x 4, Bulgarian speaking, able to make needs known can follow simple commands, no SOB, breathing even and unlabored. Due medications given per MD order, pain medications given when non pharmacological measures ineffective. No s/s of hypo/hyperglycemia noted, blood sugar for am is 85 and 109 during noon time. Patient has Cefepime IV, tolerating well, no adverse effect noted at this time, remained afebrile during shift. Call light left within reach, all needs attended, kept clean and dry, safety precautions maintained, brakes locked, side rails up X 2, will endorse to next shift for continuity of care.
--- NOTE | 2020-12-11 19:05 | NUR ---
MS RN OPENING NOTES: RECEIVED PATIENT IN BED, AWAKE, A/O X4, NO S/S OF DISTRESS NOTED. CALL LIGHT WITHIN REACH. BED IN LOWEST AND LOCKED POSITION. HOB ELEVATED. NO COMPLAIN OF PAIN AT THIS TIME. PER REPORT PATIENT AMBULATED EARLIER TODAY.
[2020-12-11 20:00] VITALS: BP 102/51
[2020-12-11] MEDS: VANCOMYCIN 1 GM in IV D5W 250 ML IV SCH (21:58)
--- NOTE | 2020-12-11 21:58 | NUR ---
blood sugar =90, no insu;nicholas coverage needed.
[2020-12-12] MEDS: CEFEPIME 2 GM in IV D5W 100 ML IV SCH ×2 (01:53→14:07)
[2020-12-12] MEDS: METRONIDAZOLE 500 MG TABLET PO SCH ×3 (04:01→20:52)
[2020-12-12] MEDS: HYDROMORPHONE 1 MG/1 ML DISP.SYRIN IV PRN ×7 (04:02→21:33)
[2020-12-12] MEDS: THERAHONEY GEL 1.5 OZ TUBE TP SCH (04:25)
[2020-12-12 06:15] LABS: BASOPHILS % (AUTO) 0.2 % (0.0-2.0); HEMATOCRIT 30 % (33-45); HEMOGLOBIN 9.9 g/dL (11.5-14.8); LYMPHOCYTES # (AUTO) 1.2 K/uL (0.8-4.8); LYMPHOCYTES % (AUTO) 11.3 % (20.0-44.0); MEAN CORPUSCULAR HGB CONC 33 g/dl (31.0-36.0); MEAN CORPUSCULAR VOLUME 87 fL (82-100); MONOCYTES # (AUTO) 0.6 K/uL (0.1-1.30); MONOCYTES % (AUTO) 5.3 % (2.0-12.0); NEUTROPHILS # (AUTO) 8.8 K/uL (1.8-8.9); NEUTROPHILS % (AUTO) 81.2 % (43.0-81.0); PLATELET COUNT (AUTO) 245 K/uL (150-450); RED BLOOD CELL COUNT(AUTO) 3.45 MIL/uL (4.0-5.2); WHITE BLOOD COUNT (AUTO) 10.8 K/uL (4.3-11.0)
[2020-12-12 06:31] LABS: CALCIUM, SERUM 8.3 mg/dL (8.5-10.1); CREATININE 1.4 mg/dL (0.6-1.3); POTASSIUM 3.7 mmol/L (3.5-5.1)
[2020-12-12] MEDS: BLOOD SUGAR DIAGNOSTIC 1 EACH STRIP IN SCH ×4 (07:04→21:02)
--- NOTE | 2020-12-12 07:04 | NUR ---
BLOOD SUGAR=90 NO INSULIN COVERAGE NEEDED.
--- NOTE | 2020-12-12 07:30 | NUR ---
MS RN OPENING NOTE RECEIVED PATIENT AWAKE IN BED. ALERT AND ORIENTED X 4. NO S/S OF DISTRESS NOTED. BREATHING IS EVEN AND UNLABORED. IV ACCESS RAC#20 PATENT AND INTACT. SAFETY MEASURES MAINTAINED WITH BED LOCKED AT LOW POSITION AND SIDE RAILS UP X2. . WILL CONTINUE TO MONITOR THROUGHOUT SHIFT.
[2020-12-12 08:00] VITALS: BP 117/71
[2020-12-12] MEDS: ESCITALOPRAM OXALATE (10 MG) 10 MG TABLET PO SCH (08:25)
[2020-12-12] MEDS: FERROUS SULFATE (325 MG) 325 MG/TAB TABLET PO SCH ×2 (08:25→17:02)
[2020-12-12] MEDS: LISINOPRIL (5MG) 5 MG TABLET PO SCH (08:25)
[2020-12-12] MEDS: DILTIAZEM HCL 30 MG TABLET PO SCH ×2 (08:25→17:01)
[2020-12-12] MEDS: ASPIRIN 81 MG TAB.CHEW PO SCH (08:25)
[2020-12-12] MEDS: GABAPENTIN 100 MG CAPSULE PO SCH ×3 (08:25→17:02)
[2020-12-12] MEDS: FUROSEMIDE 20 MG TABLET PO SCH (08:25)
[2020-12-12] MEDS: CARVEDILOL 6.25 MG TABLET PO SCH ×2 (08:26→17:01)
[2020-12-12] MEDS: FLUTICASONE/VILANTEROL 1 EACH BLST.W.DEV IH SCH (08:44)
[2020-12-12] MEDS ORDERED: LIDOCAINE 1% INJ 50 ML MDV IJ ONE (11:00)
--- NOTE | 2020-12-12 19:02 | NUR ---
MS RN CLOSING NOTE PATIENT IS RESTING BED, COMFORTABLY. NO S/S OF DISTRESS NOTED. BREATHING IS EVEN AND UNLABORED. ALL NEEDS MET THROUGHOUT SHIFT. SAFETY MEASURES MAINTAINED WITH BED LOCKED AT LOW POSITION AND SIDE RAILS UP X2. . WILL ENDORSE CONTINUITY OF CARE TO ONCOMING SHIFT.
--- NOTE | 2020-12-12 19:45 | NUR ---
MS RN OPENING NOTES RECEIVED PT IN BED, AWAKE. AOx4. ON ROOM AIR AND TOLERATING WELL. NO SOB NOTED. NO S/SX OF RESPIRATORY DISTRESS NOTED. IV ACCESS IN RAC #20G SALINE LOCKED. IV IS INTACT, PATENT, AND FLUSHING WELL. SAFETY PRECAUTIONS IN PLACE: BED IN LOWEST, LOCKED POSITION, BRAKES ON, SIDERAILS UPx2. TABLE AND CALL LIGHT WITHIN REACH. WILL CONTINUE TO MONITOR.
[2020-12-12 20:00] VITALS: BP 90/63
[2020-12-12] MEDS: INSULIN REGULAR, HUMAN 100 UNIT/ML 3 ML VIAL SQ PRN (21:03)
--- NOTE | 2020-12-12 21:03 | NUR ---
PT HAD BLOOD SUGAR OF 108 MG/DL. HELD INSULIN PER SLIDING SCALE.
--- NOTE | 2020-12-12 21:33 | NUR ---
ADMINISTERED DILAUDID FOR PAIN PER MD ORDER. VITAL SIGNS WNL. WILL CONTINUE TO MONITOR.
[2020-12-13] MEDS: HYDROMORPHONE 1 MG/1 ML DISP.SYRIN IV PRN ×4 (00:21→09:51)
--- NOTE | 2020-12-13 00:26 | NUR ---
ADMINISTERED DILAUDID AT 0021 PER MD ORDER. VITAL SIGNS WNL. WILL CONTINUE TO MONITOR.
[2020-12-13] MEDS: CEFEPIME 2 GM in IV D5W 100 ML IV SCH (02:21)
--- NOTE | 2020-12-13 04:06 | NUR ---
SPOKE TO DR. CARLIN ABOUT PT'S NAUSEA. RECEIVED ORDER FOR ZOFRAN 4MG Q8HRS PRN.
[2020-12-13] MEDS ORDERED: ONDANSETRON HCL/PF 4 MG/2 ML VIAL IV PRN (04:30)
[2020-12-13] MEDS: METRONIDAZOLE 500 MG TABLET PO SCH (05:06)
--- NOTE | 2020-12-13 05:35 | NUR ---
ADMINISTERED DILAUDID FOR PAIN, PER MD ORDER @ 2224. VITAL SIGNS STABLE. WILL CONTINUE TO MONITOR. ADMINISTERED ZOFRAN FOR EPISODE OF EMESIS @ 7001. WILL CONTINUE TO MONITOR.
[2020-12-13] MEDS: BLOOD SUGAR DIAGNOSTIC 1 EACH STRIP IN SCH (06:00)
[2020-12-13] MEDS: INSULIN REGULAR, HUMAN 100 UNIT/ML 3 ML VIAL SQ PRN (06:01)
--- NOTE | 2020-12-13 06:01 | NUR ---
PT'S BLOOD SUGAR IS 94 MG/DL. PER SLIDING SCALE, NO INSULIN COVERAGE IS NEEDED.
--- NOTE | 2020-12-13 06:27 | NUR ---
MS RN CLOSING NOTES PT IN BED ASLEEP, AWAKENS TO VERBAL STIMULI. AOx4. ON ROOM AIR AND TOLERATING WELL. NO SOB NOTED. NO S/SX OF RESPIRATORY DISTRESS NOTED. IV ACCESS IN RAC #20G SALINE LOCKED. IV IS INTACT, PATENT, AND FLUSHING WELL. TREATED PAIN THROUGHOUT SHIFT. ALL NEEDS MET. PT KEPT CLEAN AND DRY. SAFETY PRECAUTIONS IN PLACE: BED IN LOWEST, LOCKED POSITION, BRAKES ON, SIDERAILS UPx2. TABLE AND CALL LIGHT WITHIN REACH. WILL ENDORSE TO ONCOMING SHIFT. Addendum: 12/13/20 at 0647 by RONAN MADSEN RN ADMINISTERED DILAUDID @0642. WNL. WILL CONTINUE TO MONITOR.
[2020-12-13 06:37] LABS: BASOPHILS % (AUTO) 0.2 % (0.0-2.0); EOSINOPHILS % (AUTO) 1.2 % (0.0-6.0); HEMATOCRIT 33 % (33-45); HEMOGLOBIN 10.7 g/dL (11.5-14.8); LYMPHOCYTES # (AUTO) 0.7 K/uL (0.8-4.8); LYMPHOCYTES % (AUTO) 6.3 % (20.0-44.0); MEAN CORPUSCULAR HGB CONC 32 g/dl (31.0-36.0); MEAN CORPUSCULAR VOLUME 88 fL (82-100); MONOCYTES # (AUTO) 0.6 K/uL (0.1-1.30); MONOCYTES % (AUTO) 5.6 % (2.0-12.0); NEUTROPHILS # (AUTO) 9.8 K/uL (1.8-8.9); NEUTROPHILS % (AUTO) 86.7 % (43.0-81.0); PLATELET COUNT (AUTO) 242 K/uL (150-450); RED BLOOD CELL COUNT(AUTO) 3.75 MIL/uL (4.0-5.2); WHITE BLOOD COUNT (AUTO) 11.3 K/uL (4.3-11.0)
[2020-12-13 07:01] LABS: CALCIUM, SERUM 8.5 mg/dL (8.5-10.1); CREATININE 1.5 mg/dL (0.6-1.3)
[2020-12-13] MEDS ORDERED: LEVO500T90 PO (07:16)
[2020-12-13] MEDS ORDERED: HYDR-3976 PO (07:19)
--- NOTE | 2020-12-13 07:30 | NUR ---
m/s dry cleaning manager: md visit seen and examined by dr. evans with order to d'c home. order acknowledged. pt aware.
[2020-12-13 08:27] VITALS: BP 112/68
[2020-12-13 08:44] VITALS: BP 112/68
[2020-12-13] MEDS: FERROUS SULFATE (325 MG) 325 MG/TAB TABLET PO SCH (08:44)
[2020-12-13] MEDS: LISINOPRIL (5MG) 5 MG TABLET PO SCH (08:44)
[2020-12-13] MEDS: CARVEDILOL 6.25 MG TABLET PO SCH (08:44)
[2020-12-13] MEDS: ASPIRIN 81 MG TAB.CHEW PO SCH (08:44)
[2020-12-13] MEDS: FUROSEMIDE 20 MG TABLET PO SCH (08:44)
[2020-12-13] MEDS: FLUTICASONE/VILANTEROL 1 EACH BLST.W.DEV IH SCH (08:44)
[2020-12-13] MEDS: DILTIAZEM HCL 30 MG TABLET PO SCH (08:44)
[2020-12-13] MEDS: ESCITALOPRAM OXALATE (10 MG) 10 MG TABLET PO SCH (08:44)
[2020-12-13] MEDS: GABAPENTIN 100 MG CAPSULE PO SCH (08:44)
--- NOTE | 2020-12-13 09:51 | NUR ---
m/s line clearance foreman: notes wound tx done to right lateral and medial ankle diabetic ulcers. pt c/o 12/29 right leg pain. medicated with dilaudid 1mg ivp by rn. will continue to monitor. for d'c planing home with home health. cm arranging home health visit for wound care. pt aware.
[2020-12-13] MEDS: THERAHONEY GEL 1.5 OZ TUBE TP SCH (09:53)
--- NOTE | 2020-12-13 10:21 | NUR ---
m/s food service substitute: notes pt verbalized relief of pain. awaiting for family to pick her up.
--- NOTE | 2020-12-13 11:30 | NUR ---
m/s philosophy and religion instructor: notes pt refused lunch and accu check. awaiting for brother to pick her up. dr. gates at bedside and educated pt on wound treatment and follow up appointment with her primary doctor. pt verbalized understanding. discharge instructions given with e script and norco prescription to pt. pt verbalized understanding. pt to have home health pegasus to see her at home for wound care. pt aware.
--- NOTE | 2020-12-13 12:00 | NUR ---
m/s zipper setter: notes discharge home accompanied by brother via private car in stable condition.
== END 2020-12-13 11:55 | disposition home or self-care (01) | DRG 570 ==
LOC: ER 19:34 → TRANSITION 12-10 02:26 → MEDSG1 12-10 04:32 → MED 12-10 19:54
PROVIDERS: ADMIT Internal Medicine; ATTEND Family Medicine
PROC: 0JBQ0ZZ Excision of Right Foot Subcutaneous Tissue and Fascia, Open Approach (ICD-10-PCS; principal; 2020-12-12)
DX: L03.115 Cellulitis of right lower limb (principal); N17.0 Acute kidney failure with tubular necrosis; I13.0 Hypertensive heart and chronic kidney disease with heart failure and stage 1 through stage 4 chronic kidney disease, or unspecified chronic kidney disease; I16.1 Hypertensive emergency; E11.621 Type 2 diabetes mellitus with foot ulcer; L97.519 Non-pressure chronic ulcer of other part of right foot with unspecified severity; F32.9 Major depressive disorder, single episode, unspecified; E11.22 Type 2 diabetes mellitus with diabetic chronic kidney disease; J44.9 Chronic obstructive pulmonary disease, unspecified; E03.9 Hypothyroidism, unspecified; Z20.822 Contact with and (suspected) exposure to COVID-19; I50.9 Heart failure, unspecified; E11.51 Type 2 diabetes mellitus with diabetic peripheral angiopathy without gangrene; Z90.710 Acquired absence of both cervix and uterus; Z79.51 Long term (current) use of inhaled steroids; Z79.82 Long term (current) use of aspirin; Z79.899 Other long term (current) drug therapy; N18.9 Chronic kidney disease, unspecified; E11.622 Type 2 diabetes mellitus with other skin ulcer; E66.9 Obesity, unspecified; D63.8 Anemia in other chronic diseases classified elsewhere; F17.200 Nicotine dependence, unspecified, uncomplicated; F41.9 Anxiety disorder, unspecified; D64.9 Anemia, unspecified; R26.2 Difficulty in walking, not elsewhere classified; Z79.84 Long term (current) use of oral hypoglycemic drugs
CPT/HCPCS: 36415; 73590-TC; 73630-TC; 73718-TC; 76770-TC; 80048-TC; 80202-TC; 81001; 82962-TC; 83540-TC; 83970; 85025-TC; 85652-TC; 86140-TC; 86803; 87040-TC; 87070-TC; 87081-TC; 87086-TC; 87186-TC; 87806; A6253; A6403; C9803; G0378; J0692; J1170; J1815; J2270; J2405; J2543; J3370; J3490; J7030; J7040; J7050; J7060

== ENCOUNTER 2021-09-09 12:55 | Emergency (ER) | payer MEDICARE, OTHER ==
[~2021-09-09] VITALS: Ht 167.6 cm; Wt 98.9 kg
[~2021-09-09 12:55] MED LIST changes: +LEVO500T90 PO
--- NOTE | 2021-09-09 13:40 | NUR ---
BIBS RLE, wound check ; C/O RLE pain as well she goes to [facility]. AMBULATORY, PLACED ON BED, AAOX4, IN PAIN 12/29.
[2021-09-09] MEDS ORDERED: HYDROCODONE/APAP 5/325MG TABLET ONE (14:45)
[2021-09-09] MEDS ORDERED: SULF1TAB48 PO (14:47)
[2021-09-09] MEDS ORDERED: HYDR-4209 PO (14:47)
[2021-09-09] MEDS ORDERED: HYDROCODONE/APAP 5/325MG TABLET PO ONE (15:00)
[2021-09-09] MEDS ORDERED: SULFAMETH/TRIMETH 800/160 MG 1 UDTAB TABLET PO ONE (15:00)
[2021-09-09] MEDS ORDERED: SULFAMETH/TRIMETH 800/160 MG 1 UDTAB TABLET ONE (15:14)
--- NOTE | 2021-09-09 15:35 | NUR ---
Patient discharged to home in stable condition. Written and verbal after care instructions given. Patient verbalizes understanding of instruction.
[2021-09-09 15:36] VITALS: BP 178/100
== END 2021-09-09 15:36 | disposition home or self-care (01) ==
LOC: ER 12:57
DX: E11.621 Type 2 diabetes mellitus with foot ulcer (principal); I10 Essential (primary) hypertension; Z79.899 Other long term (current) drug therapy
CPT/HCPCS: 99283; A6253